=== PATIENT | male | born 1960 | race Caucasian/White ===

== ENCOUNTER → 2017-10-11 | Outpatient (CLI) | payer BC ==
[~2017-10-11] MED LIST: IOHEXOL 180 MG/ML 10 ML VIAL.; methylPREDNISolone ACETATE 40 MG/ML VIAL.; methylPREDNISolone ACETATE 80 MG/ML VIAL.
== END | disposition home or self-care (01) ==
LOC: PNCL 10:41
DX: M54.6 Pain in thoracic spine (principal); M48.54XA Collapsed vertebra, not elsewhere classified, thoracic region, initial encounter for fracture; I10 Essential (primary) hypertension; M19.90 Unspecified osteoarthritis, unspecified site; J44.9 Chronic obstructive pulmonary disease, unspecified; Z79.899 Other long term (current) drug therapy; Z98.890 Other specified postprocedural states; Z88.0 Allergy status to penicillin; Z83.3 Family history of diabetes mellitus; F17.210 Nicotine dependence, cigarettes, uncomplicated; H91.90 Unspecified hearing loss, unspecified ear; Z72.89 Other problems related to lifestyle
CPT/HCPCS: 62321; J1030; J1040; Q9965

== ENCOUNTER → 2017-10-25 | Outpatient (CLI) | payer BC | END | disposition home or self-care (01) | LOC: PNCL 10:04 | DX: M48.54XA Collapsed vertebra, not elsewhere classified, thoracic region, initial encounter for fracture (principal); M54.6 Pain in thoracic spine; Z88.0 Allergy status to penicillin | CPT/HCPCS: 62321; J1030; J1040; Q9965 ==

== ENCOUNTER 2019-04-11 18:16 | Emergency (ER) | payer OTHER ==
[~2019-04-11] VITALS: Ht 185.4 cm; Wt 88.5 kg
[~2019-04-11 18:16] MED LIST changes: +GLYC10.7 IH; +HYDR-2869 PO; -IOHEXOL 180 MG/ML 10 ML VIAL.; +VARE0.5T PO; -methylPREDNISolone ACETATE 40 MG/ML VIAL.; -methylPREDNISolone ACETATE 80 MG/ML VIAL.
[2019-04-11 19:51] VITALS: BP 139/84
[2019-04-11] MEDS ORDERED: MUPI22OI2 TP (20:35)
--- NOTE | 2019-04-11 20:36 | PHYS DOC ---
Past Medical History Past Medical History: COPD, High Cholesterol, Hypertension Past Surgical History: No Surgical History Additional Information: 1 PK/DAY Alcohol Use: Occasionally Drug Use: None Adult General Chief Complaint Chief Complaint: LACERATION/AVULSION HPI HPI Patient is a 58 year old male who presents to the ER with complaints of a wound dehiscence of the 5th finger of his left hand today. PT states he had sutures removed yesterday after having a laceration repair 2 weeks ago. At some point today the wound opened back up while he was at work. PT denies any pain at this time. He denies any bleeding or drainage from the site. Review of Systems Review of Systems Constitutional: Denies fever or chills [] Musculoskeletal: Denies joint pain [] Integument: Denies rash or erythema, see HPI Neurologic: Denies headache, focal weakness or sensory changes [] Complete systems were reviewed and found to be within normal limits, except as documented in this note. Current Medications Current Medications Current Medications Medications (Trade) Dose Ordered Sig/Frank Start Time Stop Time Status Last Admin Dose Admin Neomycin/ Polymyxin/ Bacitracin (Triple Antibiotic Ointment) 1 pkt 1X ONCE 04/11/19 21:00 04/11/19 20:57 DC 04/11/19 20:51 1 PKT Allergies Allergies Allergies Coded Allergies Type Severity Reaction Last Updated Verified Penicillins Allergy Intermediate 10/11/17 Yes Physical Exam Physical Exam Constitutional: Well developed, well nourished, no acute distress, non-toxic appearance. [] HENT: Normocephalic, atraumatic, bilateral external ears normal, nose normal. [] Eyes: PERRLA, EOMI, conjunctiva normal, no discharge. [] Neck: Normal range of motion, no stridor. [] Lungs & Thorax: Respirations even and unlabored, no retractions, no respiratory distress Abdomen: Bowel sounds normal, soft, no tenderness, no masses, no pulsatile masses. [] Skin: Warm, dry, no erythema; wound dehiscence of lateral distal fifth digit, no erythema, warmth, or drainage. Extremities: No tenderness, no cyanosis, no clubbing, ROM intact, no edema. [] Neurologic: Alert and oriented X 3, normal motor function, normal sensory function, no focal deficits noted. [] Psychologic: Affect normal, judgement normal, mood normal. [] Current Patient Data Vital Signs Vital Signs Date Time Temp Pulse Resp B/P (MAP) Pulse Ox O2 Delivery O2 Flow Rate FiO2 04/11/19 19:51 97.5 84 18 139/84 (102) 96 Room Air 97.5 EKG EKG [] Radiology/Procedures Radiology/Procedures [] Course & Med Decision Making Course & Med Decision Making Pertinent Labs and Imaging studies reviewed. (See chart for details) [] Dragon Disclaimer Dragon Disclaimer This electronic medical record was generated, in whole or in part, using a voice recognition dictation system. Departure Departure Impression: Primary Impression: Dehiscence of wound of skin Disposition: HOME, SELF-CARE Condition: STABLE Referrals: TONI BURK MD (PCP) Patient Instructions: Wound Dehiscence, [id number] Additional Instructions: Fill prescription and use as directed. Keep the area clean and dry. Change bandage twice daily and as needed. Tylenol or ibuprofen as needed for pain. Follow up with your primary care doctor in 1-2 days for wound recheck. Return to the ER if symptoms worsen. Scripts Mupirocin (MUPIROCIN OINTMENT) 22 Gm Oint...g. 1 NAHOMY TP BID for WOUND CARE for 7 Days, #1 TUBE 0 Refills Prov: JULIÁN MCKINNEY TUBE BALANCER 04/11/19 Problem Qualifiers Primary Impression: Dehiscence of wound of skin Encounter type: initial encounter Qualified Codes: T81.30XA - Disruption of wound, unspecified, initial encounter JULIÁN MCKINNEY TUBE BALANCER Apr 11, 2019 20:35
[2019-04-11] MEDS ORDERED: NEOMY/BACITR/POLYMYXIN OINT PACKET. TP ONE (21:00)
== END 2019-04-11 20:53 | disposition home or self-care (01) ==
LOC: ER 18:16
DX: T81.30XA Disruption of wound, unspecified, initial encounter (principal); J44.9 Chronic obstructive pulmonary disease, unspecified; E78.00 Pure hypercholesterolemia, unspecified; I10 Essential (primary) hypertension; F17.200 Nicotine dependence, unspecified, uncomplicated; Z88.0 Allergy status to penicillin
CPT/HCPCS: 99283

== ENCOUNTER 2020-02-02 12:14 | Inpatient (IN) | payer OTHER ==
[~2020-02-02] VITALS: Ht 188 cm; Wt 87.2 kg
[2020-02-02] VITALS (13 sets, daily range): BP systolic 98–141; BP diastolic 55–84
[~2020-02-02 12:14] MED LIST changes: +MUPI22OI2 TP
--- NOTE | 2020-02-02 13:59 | PDOC1 ---
History and Physical Date of Admission Date of Admission DATE: 02/02/20 TIME: 13:58 Identification/Chief Complaint Chief Complaint Hemoptysis Source Source: Patient History of Present Illness History of Present Illness Mr Laureano is a 59 year old male with PMHx smoker, bronchitis who presents via private vehicle to [place] ED with blood-tinged sputum. Patient was seen at [facility] ED on 01/31/2020 for fever, aches, productive sputum and was placed on doxycycline, inhalers, steroids. He comes in today stating that he now has bloody sputum which is why he came back. He does have some mild shortness of breath. He has been taking his medications as prescribed. He denies any pain. He does not currently have fevers. He had a negative coronavirus test on 01/31/2020. He does not have neo hemoptysis and in fact did cough up thick yellow sputum however it was not blood-tinged. CTPA was ordered which shows a concerning mass with lymphadenopathy, but negative for PE. Labs with WBC 20.9, Hb 14.5, platelets 322, D dimer 1.94. Troponin 0, albumin 3.3. Na 140, K 3.5, BUN 22, Cr 0.9, Glucose 119 He does relate to me he has some pain in his left side, but it has resolved. Still a bit short of breath. He notes he does have history of pulmonary embolism that was small 5 years ago and another one 30 years ago but has since been off anticoagulation. He also notes that he had a CT lung cancer screening 6 weeks ago at [facility] centers and was told it was "fine". He is concerned as he has a strong family history of cancer with colon cancer in brother, lung cancer in father and various other cancers as well in the family. He is up to date on his colonoscopy, which he had recently. Due to pneumonia not responsive to outpatient treatment and need for pulmonology and IR consultation for biopsy was transferred to [place]. Past Medical History Cardiovascular: No pertinent hx, HTN Pulmonary: No pertinent hx, COPD Musculoskeletal: low back pain Past Surgical History Past Surgical History: Other, No pertinent history Family History Family History: Cancer (Breast, colon, lung), Diabetes, Heart Disease Social History Smoke: 1 pack per day ALCOHOL: none Drugs: None Current Medications Current Medications Active Scripts Active Mupirocin Ointment (Mupirocin) 22 Gm Oint...g. 1 Ashley TP BID 7 Days Reported Bevespi Aerosphere Inhaler (Glycopyrrolate/Formoterol Fum) 10.7 Gm Hfa.aer.ad 10.7 Gm IH BID Hydralazine Hcl 50 Mg Tablet 1 Tab PO TID Chantix (Varenicline Tartrate) 0.5 Mg Tablet 0.5 Mg PO DIRECTED 0.5 MG PO DAILY X3 DAY, 0.5 MG PO BID X4 DAY, 1 MG PO BID UNTIL END OF TREATMENT Allergies Allergies: Coded Allergies: Penicillins (Verified Allergy, Intermediate, 02/02/20) Has tolerated ceftriaxone ROS General: YES: Chills, Fatigue, Malaise; No: Night Sweats, Appetite, Other PSYCHOLOGICAL ROS: No: Anxiety, Behavioral Disorder, Concentration difficultie, Decreased libido, Depression, Disorientation, Hallucinations, Hostility, Irritablity, Memory difficulties, Mood Swings, Obsessive thoughts, Physical abuse, Sexual abuse, Sleep disturbances, Suicidal ideation, Other Eyes: No Blurry vision, No Decreased vision, No Double vision, No Dry eyes, No Excessive tearing, No Eye Pain, No Itchy Eyes, No Loss of vision, No Photophobia, No Scotomata, No Uses contacts, No Uses glasses, No Other HEENT: No: Heacaches, Visual Changes, Hearing change, Nasal congestion, Nasal discharge, Oral lesions, Sinus pain, Sore Throat, Epistaxis, Sneezing, Snoring, Tinnitus, Vertigo, Vocal changes, Other ALLERGY AND IMMUNOLOGY: No: Hives, Insect Bite Sensitivity, Itchy/Watery Eyes, Nasal Congestion, Post Nasal Drip, Seasonal Allergies, Other Hematological and Lymphatic: No: Bleeding Problems, Blood Clots, Blood Transfusions, Brusing, Night Sweats, Pallor, Swollen Lymph Nodes, Other ENDOCRINE: No: Breast Changes, Galactorrhea, Hair Pattern Changes, Hot Flashes, Malaise/lethargy, Mood Swings, Palpitations, Polydipsia/polyuria, Skin Changes, Temperature Intolerance, Unexpected Weight Changes, Other Breast: No New/Changing Breast Lumps, No Nipple changes, No Nipple discharge, No Other Respiratory: YES: Cough, Hemoptysis, Pleuritic Pain, Shortness of breath, SOB with excertion, Sputum Changes, Tachypnea, Wheezing; No: Orthopnea, Stridor, Other Cardiovascular: No Chest Pain, No Palpitations, No Orthopnea, No Paroxysmal Noc. Dyspnea, No Edema, No Lt Headedness, No Other Gastrointestinal: No Nausea, No Vomiting, No Abdominal Pain, No Diarrhea, No Constipation, No Melena, No Hematochezia, No Other Genitourinary: No Dysuria, No Frequency, No Incontinence, No Hematuria, No Retention, No Discharge, No Urgency, No Pain, No Flank Pain, No Other, No , No , No , No , No , No , No Musculoskeletal: No Gait Disturbance, No Joint Pain, No Joint Stiffness, No Joint Swelling, No Muscle Pain, No Muscular Weakness, No Pain In:, No Swelling In:, No Other Neurological: No Behavorial Changes, No Bowel/Bladder ControlChng, No C onfusion, No Dizziness, No Gait Disturbance, No Headaches, No Impaired Coord/balance, No Memory Loss, No Numbness/Tingling, No Seizures, No Speech Problems, No Tremors, No Visual Changes, No Weakness, No Other Skin: No Dry Skin, No Eczema, No Hair Changes, No Lumps, No Mole Changes, No Mottling, No Nail Changes, No Pruritus, No Rash, No Skin Lesion Changes, No Other, No Acne Physical Exam General: Alert, Oriented X3, Cooperative, mild distress HEENT: Atraumatic, PERRLA, EOMI, Mucous membr. moist/pink Lungs: Other (Left basilar rhonchi, scattered wheezes) Heart: S1S2, RRR, no thrills, no rubs, no gallops, no murmurs Abdomen: Normal bowel sounds, Soft, No tenderness, No hepatosplenomegaly, No masses Male Genitals Exam: normal genitalia, normal prostate Rectal Exam: not examined Extremities: No clubbing, No cyanosis, No edema, Normal pulses, No tenderness/swelling Skin: No rashes, No breakdown, No significant lesion Neuro: Normal gait, Normal speech, Strength at 5/5 X4 ext, Normal tone, Sensation intact, Cranial nerves 3-12 NL, Reflexes 2+ Psych/Mental Status: Mental status NL, Mood NL Vitals Vitals Vital Signs Date Time Temp Pulse Resp B/P (MAP) Pulse Ox O2 Delivery O2 Flow Rate FiO2 02/02/20 13:37 97.6 66 18 141/82 (101) 99 Room Air 97.6 Images Images Lungs and Airways: Spiculated left lower infrahilar mass measures 4.0 x 3.7 x 5.0 cm (TV by AP by CC). Mass predominantly involves the lower lobe, however there is abutment and crossing of the oblique fissure. Paraseptal and centrilobular emphysema. Scattered endobronchial mucous plugging. Few small pulmonary nodules which are stable, for example left lower lobe left lower lobe 5 mm nodule (image 95) and middle lobe 6 mm nodule (image 89). Pleura: The pleural spaces are normal. Heart and Mediastinum: The visualized thyroid is normal in size and attenuation. Left hilar lymphadenopathy, for example enlarged left hilar lymph node measures 1.1 cm short axis (series 5 image 80). Enlarged left lower paratracheal lymph node measures 1.2 cm short axis (series 5 image 59). There are a few conspicuous but not pathologically enlarged by CT criteria right mediastinal lymph nodes. The heart and pericardium are within normal limits. The great vessels of the thorax are normal. Abdomen: Limited images through the upper abdomen show no abnormality of the visualized organs. Bones and Soft Tissues: Degenerative changes of the spine. Old left rib fractures. T6 vertebral plana, progressed from exam of 06/11/2017 with increased focal kyphosis. Mild chronic height loss at several additional levels is unchanged. No aggressive lytic or blastic osseous lesions. IMPRESSION: 1. No evidence of pulmonary thrombolic disease. 2. Spiculated left infrahilar mass measuring up to 5 cm concerning for primary lung neoplasm. This would likely be amenable to PET/CT based on size. 3. Left hilar and ipsilateral mediastinal lymphadenopathy concerning for metastatic disease. Few conspicuous but not pathologically enlarged by CT criteria contralateral mediastinal lymph nodes. 4. T6 compression deformity with progression of height loss since 06/11/2017 and increased focal kyphosis. VTE Prophylaxis Ordered VTE Prophylaxis Devices: No VTE Pharmacological Prophylaxi: Yes Assessment/Plan Assessment/Plan A/P: Pneumonia - left lower lobe, likely gram negative or gram positive given post- obstructive location, will cover with rocephin and doxycycline Lung mass - I have consented patient for IR lung biopsy and ordered his imaging from diagnostic imaging center. If it truly appeared this quickly over 6 weeks is likely a very aggressive malignancy Blood tinged sputum - likely bronchitis from coughing. No need to hold lovenox Leukocytosis - sepsis from pneumonia, given IVF and antibiotics prior to transport to [facility], could also be 2/2 steroid administration H/o PE - will cover with lovenox Elevated blood pressure without dx of HTN - previously prescribed lisinopril and hydralazine, but currently does not take anti-hypertensives Smoker - counseled on cessation. He is not interested in nicotine patch currently FEN - General diet PPX - lovenox FULL CODE Dispo - inpatient for pneumonia failing outpatient therapy and new lung mass, likely 2 midnights. Justicifation of Admission Dx: Justifications for Admission: Justification of Admission Dx: Yes Acute COPD Exacerbation: Acute COPD Exacerbation Comments: Pneumonia failing outpatient antibiotic therapy BARBARA LUU MD Feb 02, 2020 13:59
[2020-02-02] MEDS ORDERED: ONDANSETRON PF 4 MG/2 ML VIAL. IV PRN (14:00)
[2020-02-02] MEDS ORDERED: ACETAMINOPHEN 325 MG TABLET. PO PRN (14:00)
[2020-02-02] MEDS ORDERED: DOCUSATE SODIUM 100 MG CAPSULE. PO PRN (14:00)
[2020-02-02] MEDS ORDERED: ZOLPIDEM 5 MG TABLET. PO PRN (14:00)
[2020-02-02] MEDS ORDERED: MAGNESIUM CITRATE 296 ML SOLUTION. PO PRN (14:45)
[2020-02-02] MEDS ORDERED: traMADol 50 MG TABLET PO PRN (14:45)
[2020-02-02 14:57] LABS: PROTHROMBIN TIME PATIENT 13.3 SEC (11.7-14.0)
[2020-02-02] MEDS ORDERED: MIDAZOLAM HCL/PF 2 MG/2 ML VIAL. ONE (15:07)
[2020-02-02] MEDS ORDERED: LIDOCAINE WITH 8.4% SOD BICARB 3 ML DISP.SYRIN. ONE (15:07)
[2020-02-02] MEDS ORDERED: fentaNYL PF VIAL 100 MCG/2 ML VIAL ONE (15:07)
[2020-02-02] MEDS ORDERED: LIDOCAINE WITH 8.4% SOD BICARB 3 ML DISP.SYRIN. IJ ONE (15:45)
[2020-02-02] MEDS ORDERED: MIDAZOLAM HCL/PF 2 MG/2 ML VIAL. IV ONE (15:45)
[2020-02-02] MEDS ORDERED: fentaNYL PF VIAL 100 MCG/2 ML VIAL IV ONE (15:45)
[2020-02-02] MEDS: IPRATRPIUM/ALBUTEROL 0.5/2.5MG 3 ML NEBU. NEB SCH ×2 (16:06→20:04)
--- NOTE | 2020-02-02 16:10 | RAD ---
Procedure: CT-guided left lung biopsy Clinical Indication: Adult male with left lung mass, spiculated, concerning for neoplasm. Sedation: Conscious sedation was administered with a total intraprocedural [id number] time of 20 minutes. The patient was monitored by a qualified independent observer throughout the time of sedation. Please refer to the medical record for exact doses of medications utilized to achieve moderate sedation. Antibiotics: None Sterility: The procedure was performed in its entirety using appropriate elements of sterile technique. Consent: The procedure was explained in its entirety to the patient or the patients designated metals sales representative by a member of the treatment team, including a discussion of the risks, benefits and commonly accepted alternatives to the procedure, as well as the expected consequences of no therapy whatsoever. Discussion of the risks included, but was not limited to, those that are most frequent and those that are rare but possibly severe or life-threatening, as well as the possibility of unforeseen complications. Technique and Findings: Following informed consent, the patient was prepped and draped in usual sterile fashion. Preliminary CT scan of the area of interest was performed. 1% lidocaine was used to achieve local anesthesia over the area of interest. A small dermatotomy was made. Under periodic CT surveillance, a 19-gauge needle guide was advanced towards the target lesion and 5 separate 20-gauge core biopsy specimens were obtained and preserved in formalin. A blood patch was applied as the needle guide was removed and hemostasis was achieved with manual compression. Completion CT scan demonstrated no significant pneumothorax. Complications: No immediate Impression: 1. CT-guided left lung biopsy as described. PQRS Compliance Statement: One or more of the following individualized dose reduction techniques were utilized for this examination: 1. Automated exposure control 2. Adjustment of the mA and/or kV according to patient size 3. Use of iterative reconstruction technique
[2020-02-02] MEDS: ENOXAPARIN 40 MG/0.4 ML SYRINGE. SQ SCH (17:43)
[2020-02-02] MEDS: cefTRIAXone IV Push 1 GM VIAL. IVP SCH (17:43)
[2020-02-02] MEDS: BUDESONIDE 0.5 MG/2 ML NEBU. NEB SCH (20:03)
--- NOTE | 2020-02-02 20:11 | RAD ---
Exam: Chest one view INDICATION: Status post left lung biopsy TECHNIQUE: Frontal view of the chest Comparisons: None FINDINGS: The cardiomediastinal silhouette and pulmonary vessels are within normal limits. There is a tiny right apical pneumothorax. No pleural effusion. IMPRESSION: Tiny right apical pneumothorax FOR INTERNAL CODING PURPOSES Critical result: Findings discussed with Brynn Blackman RN at 02/02/2020 8:04 PM. RESULT CODE: (C) Electronically signed by: Chauncey Lawson MD (02/02/2020 8:07 PM) [id number]
[2020-02-02] MEDS: DOXYCYCLINE HYCLATE 100 MG in IV DEXTROSE 5% 100ML 100 ML IV SCH (21:01)
[2020-02-02] MEDS: PSYLLIUM HUSK (SUGAR FREE) 1 PKT PACKET PO SCH (21:01)
--- NOTE | 2020-02-02 22:55 | NUR ---
NURSING NOTE Critical Radiology result called to this RN from the Radiologist, reported pt had a small left apical pneumothorax on the post lung biopsy chest xray. Pt is A/O, having no difficulty breathing, lung sounds clear, diminished LLL posteriorly, pulse ox at 96% on Room Air. Dr. Colin paged at 2013, and after multiple attempts to repage, the answering service patched through to Dr. De Luna. Results reported to Dr. De Luna at [id number], order for continuos pulse ox through tonight received. Will monitor.
[2020-02-03] MEDS: guaiFENesin DM 200MG/20MG 10 ML SYRUP PO PRN ×3 (02:04→17:53)
[2020-02-03 07:00] VITALS: BP 108/73
[2020-02-03] MEDS: IPRATRPIUM/ALBUTEROL 0.5/2.5MG 3 ML NEBU. NEB SCH ×4 (08:00→20:47)
[2020-02-03] MEDS: BUDESONIDE 0.5 MG/2 ML NEBU. NEB SCH ×3 (08:00→20:47)
--- NOTE | 2020-02-03 08:33 | CONS ---
DATE OF CONSULTATION: 02/03/2020 REASON FOR CONSULTATION: I was asked to see this 59-year-old gentleman for abnormal CT of the chest, hemoptysis. HISTORY OF PRESENT ILLNESS: He does have history of [id number] smoking, continues to smoke 1 pack per day. Two days ago, he had increased cough with pink sputum production, yesterday it was worse. He went to [facility] then was transferred to [facility] for further evaluation. He had a CT done, which did show mass and he underwent a CT-guided biopsy yesterday. Pathology is pending. He has more cough with pinkish sputum production. He has occasional wheezing. He has chronic shortness of breath, which is not worse. He denies fever or chills. PAST MEDICAL HISTORY: COPD, he is on albuterol and Symbicort; hypertension. ALLERGIES: PENICILLINS. MEDICATIONS: Currently, he is on doxycycline, Pulmicort, DuoNeb, Rocephin, Lovenox 40 mg subcutaneous daily. SOCIAL HISTORY: History of [id number] smoking. Continues to smoke about 1 pack per day. FAMILY HISTORY: His father had mesothelioma. REVIEW OF SYSTEMS: As mentioned as above, other systems otherwise negative. PHYSICAL EXAMINATION: GENERAL: He is not in distress. VITAL SIGNS: His O2 saturation on room air is 98, respiratory rate 20, heart rate 63, blood pressure 98/55, temperature 97.9. HEENT: Normocephalic, atraumatic. Pupils equal, round, reactive to light. Throat is clear. Nose is clear. NECK: There is no JVD, lymphadenopathy or thyromegaly. CARDIOVASCULAR: Regular rate and rhythm. PMI is nondisplaced. CHEST: Inspection is normal. LUNGS: Few end-expiratory wheezing with forced exhalation. Percussion is within normal limit. ABDOMEN: Soft. Bowel sounds are good. There is no mass. EXTREMITIES: There is no edema. LYMPHATICS: There is no lymphadenopathy. NEUROLOGIC: Alert and oriented. SKIN: Chronic changes. LABORATORY DATA: I reviewed the following lab data: CT of the chest, which was done in [facility] is not available for me, but reportedly showed a mass with lymphadenopathy. No pulmonary embolism. Chest x-ray showed bilateral hyperinflation, small left apical pneumothorax. INR 1.1. IMPRESSION: 1. Cough. The patient reports pink sputum, not hemoptysis. I suspect it is secondary to acute bronchitis versus pneumonia. 2. Abnormal CT of the chest, reportedly he has a left lung mass with mediastinal lymphadenopathy. 3. Chronic obstructive pulmonary disease with mild acute exacerbation. 4. Acute bronchitis versus pneumonia. 5. Tobacco habituation. 6. Hypertension. PLAN AND RECOMMENDATIONS: 1. Titrate FiO2 to keep O2 saturation 92%. 2. Continue bronchodilator. 3. Continue inhaled corticosteroid. 4. Continue antibiotic. 5. Follow up pathology. 6. I had a long discussion with him regarding the smoking cessation. I have advised him to stop smoking forever. 7. Lovenox for DVT prophylaxis. 8. The findings and recommendations were discussed with the patient in detail. He understood and agreed to proceed with the plan. Thank you very much for allowing me to participate in care of this very nice gentleman. PENG LEE M.D. : LEONORA/billy JOB#: [id number] / [id number]
[2020-02-03] MEDS: DOXYCYCLINE HYCLATE 100 MG in IV DEXTROSE 5% 100ML 100 ML IV SCH ×2 (10:17→21:15)
[2020-02-03 11:00] VITALS: BP 110/78
--- NOTE | 2020-02-03 11:55 | PDOC ---
PROGRESS NOTES Date of Service: DATE: 02/03/20 TIME: 11:55 Chief Complaint Chief Complaint Assessment/Plan Assessment/Plan A/P: Pneumonia - left lower lobe, likely gram negative or gram positive given post- obstructive location, will cover with rocephin and doxycycline Lung mass - I have consented patient for IR lung biopsy and ordered his imaging from diagnostic imaging center. If it truly appeared this quickly over 6 weeks is likely a very aggressive malignancy Blood tinged sputum - likely bronchitis from coughing. No need to hold lovenox Leukocytosis - sepsis from pneumonia, given IVF and antibiotics prior to transport to [facility], could also be 2/2 steroid administration H/o PE - will cover with lovenox Elevated blood pressure without dx of HTN - previously prescribed lisinopril and hydralazine, but currently does not take anti-hypertensives Smoker - counseled on cessation. He is not interested in nicotine patch Abnormal CT of the chest, reportedly he has a left lung mass with mediastinal lymphadenopathy. Chronic obstructive pulmonary disease with mild acute exacerbation. Acute bronchitis versus pneumonia. FEN - General diet PPX - lovenox FULL CODE Dispo - inpatient for pneumonia failing outpatient therapy and new lung mass, likely 2 midnights. 40 min pt exam, chart review, > 50% of time spent with exam, chart review, pt care coordination History of Present Illness History of Present Illness History of Present Illness History of Present Illness Mr Laureano is a 59 year old male with PMHx smoker, bronchitis who presents via private vehicle to [facility] ED with blood-tinged sputum. Patient was seen at [facility] ED on 01/31/2020 for fever, aches, productive sputum and was placed on doxycycline, inhalers, steroids. He comes in today stating that he now has bloody sputum which is why he came back. He does have some mild shortness of breath. He has been taking his medications as prescribed. He denies any pain. He does not currently have fevers. He had a negative coronavirus test on 01/31/2020. He does not have neo hemoptysis and in fact did cough up thick yellow sputum however it was not blood-tinged. CTPA was ordered which shows a concerning mass with lymphadenopathy, but negative for PE. Labs with WBC 20.9, Hb 14.5, platelets 322, D dimer 1.94. Troponin 0, albumin 3.3. Na 140, K 3.5, BUN 22, Cr 0.9, Glucose 119 He does relate to me he has some pain in his left side, but it has resolved. Still a bit short of breath. He notes he does have history of pulmonary embolism that was small 5 years ago and another one 30 years ago but has since been off anticoagulation. He also notes that he had a CT lung cancer screening 6 weeks ago at diagnostic imaging centers and was told it was "fine". He is concerned as he has a strong family history of cancer with colon cancer in brother, lung cancer in father and various other cancers as well in the family. He is up to date on his colonoscopy, which he had recently. Due to pneumonia not responsive to outpatient treatment and need for pulmonology and IR consultation for biopsy was transferred to [place]. Past Medical History Cardiovascular: No pertinent hx, HTN Pulmonary: No pertinent hx, COPD Musculoskeletal: low back pain Past Surgical History Past Surgical History: Other, No pertinent history Family History Family History: Cancer (Breast, colon, lung), Diabetes, Heart Disease Social History Smoke: 1 pack per day ALCOHOL: none Drugs: None Vitals Vitals Vital Signs Date Time Temp Pulse Resp B/P (MAP) Pulse Ox O2 Delivery O2 Flow Rate FiO2 02/03/20 11:30 98 Room Air 02/03/20 11:00 97.9 60 16 110/78 (89) 97.9 02/02/20 20:06 2.0 Physical Exam General: Alert, Oriented X3, Cooperative, mild distress Abdomen: Normal bowel sounds, Soft, No tenderness, No hepatosplenomegaly, No masses Extremities: No clubbing, No cyanosis, No edema, Normal pulses, No tenderness/swelling Skin: No rashes, No breakdown, No significant lesion Labs LABS Exam: Chest one view INDICATION: Status post left lung biopsy TECHNIQUE: Frontal view of the chest Comparisons: None FINDINGS: The cardiomediastinal silhouette and pulmonary vessels are within normal limits. There is a tiny right apical pneumothorax. No pleural effusion. IMPRESSION: Tiny right apical pneumothorax FOR INTERNAL CODING PURPOSES Critical result: Findings discussed with Brynn Blackman RN at 02/02/2020 8:04 PM. RESULT CODE: (C) Electronically signed by: Chauncey Gregg MD (02/02/2020 8:07 PM) [id number] DICTATED and SIGNED BY: CHAUNCEY GREGG MD DATE: 02/02/202006 Laboratory Tests Test 02/02/20 14:30 Prothrombin Time 13.3 SEC (11.7-14.0) Prothromb Time International Ratio 1.1 (0.8-1.1) Comment Review of Relevant I have reviewed the following items mayito (where applicable) has been applied. Labs Laboratory Tests Test 02/02/20 14:30 Prothrombin Time 13.3 SEC (11.7-14.0) Prothromb Time International Ratio 1.1 (0.8-1.1) Laboratory Tests Test 02/02/20 14:30 Prothrombin Time 13.3 SEC (11.7-14.0) Prothromb Time International Ratio 1.1 (0.8-1.1) Medications Current Medications Ondansetron HCl (Zofran) 4 mg PRN Q4HRS PRN IV NAUSEA/VOMITING; Start 02/02/20 at 14:00 Zolpidem Tartrate (Ambien) 5 mg PRN QHS PRN PO INSOMNIA; Start 02/02/20 at 14:00 Acetaminophen (Tylenol) 650 mg PRN Q4HRS PRN PO TEMP OVER 100.4F OR MILD PAIN; Start 02/02/20 at 14:00 Docusate Sodium (Colace) 100 mg PRN BID PRN PO HARD STOOLS; Start 02/02/20 at 14:00 Guaifenesin (Robitussin) 200 mg PRN Q4HRS PRN PO COUGH, 1st CHOICE; Start 02/02/20 at 14:00 Enoxaparin Sodium (Lovenox 40mg Syringe) 40 mg Q24H SQ Last administered on 02/02/20at 17:43; Start 02/02/20 at 15:00 Ceftriaxone Sodium (Rocephin) 1 gm Q24H IVP Last administered on 02/02/20at 17:43; Start 02/02/20 at 15:00 Doxycycline Hyclate 100 mg/ Dextrose 100 ml @ 50 mls/hr Q12HR IV Last administered on 02/03/20at 10:17; Start 02/02/20 at 21:00 Guaifenesin (Robitussin Dm) 10 ml PRN Q6HRS PRN PO COUGH, 2nd CHOICE Last administered on 02/03/20at 10:16; Start 02/02/20 at 14:45 Budesonide (Pulmicort) 0.5 mg RTBID NEB Last administered on 02/03/20 11:30; Start 02/02/20 at 20:00 Albuterol/ Ipratropium (Duoneb) 3 ml RTQID NEB Last administered on 02/03/20 11:30; Start 02/02/20 at 16:00 Psyllium Hydrophilic Mucilloid (Metamucil Fiber Packet) 1 pkt QPM PO Last administered on 02/02/20 21:01; Start 02/02/20 at 18:00 Magnesium Citrate (Citroma) 296 ml PRN DAILY PRN PO CONSTIPATION; Start 02/02/20 at 14:45 Tramadol HCl (Ultram) 50 mg PRN Q6HRS PRN PO PAIN; Start 02/02/20 at 14:45 Lidocaine HCl (Buffered Lidocaine 1%) 3 ml STK-MED ONCE .ROUTE ; Start 02/02/20 at 15:07; Stop 02/02/20 at 15:07; Status DC Midazolam HCl (Versed) 2 mg STK-MED ONCE .ROUTE ; Start 02/02/20 at 15:07; Stop 02/02/20 at 15:07; Status DC Fentanyl Citrate (Fentanyl 2ml Vial) 100 mcg STK-MED ONCE .ROUTE ; Start 02/02/20 at 15:07; Stop 02/02/20 at 15:08; Status DC Lidocaine HCl (Buffered Lidocaine 1%) 6 ml 1X ONCE IJ Last administered on 02/02/20at 15:46; Start 02/02/20 at 15:45; Stop 02/02/20 at 15:46; Status DC Midazolam HCl (Versed) 1 mg 1X ONCE IV Last administered on 02/02/20at 15:47; Start 02/02/20 at 15:45; Stop 02/02/20 at 15:46; Status DC Fentanyl Citrate (Fentanyl 2ml Vial) 50 mcg 1X ONCE IV Last administered on 02/02/20at 15:46; Start 02/02/20 at 15:45; Stop 02/02/20 at 15:46; Status DC Active Scripts Active Reported Bevespi Aerosphere Inhaler (Glycopyrrolate/Formoterol Fum) 10.7 Gm Hfa.aer.ad 10.7 Gm IH BID Vitals/I & O Vital Sign - Last 24 Hours 02/02/20 02/02/20 02/02/20 02/02/20 13:35 13:37 15:29 15:34 Temp 97.6 97.6 Pulse 66 56 59 Resp 18 17 15 B/P (MAP) 141/82 (101) Pulse Ox 99 100 99 O2 Delivery Room Air Room Air Nasal Cannula Nasal Cannula O2 Flow Rate 2.0 2.0 02/02/20 02/02/20 02/02/20 02/02/20 15:39 15:46 15:47 16:00 Pulse 58 59 58 Resp 11 15 16 B/P (MAP) 113/65 (81) Pulse Ox 96 98 98 99 O2 Delivery Nasal Cannula Nasal Cannula Nasal Cannula Room Air O2 Flow Rate 2.0 2.0 2.0 02/02/20 02/02/20 02/02/20 02/02/20 16:07 16:15 16:20 16:31 Temp 97.5 97.5 Pulse 61 60 59 B/P (MAP) 110/68 (82) 103/63 (76) 99/57 (71) Pulse Ox 100 100 100 98 O2 Delivery Nasal Cannula Room Air Room Air Room Air O2 Flow Rate 2.0 02/02/20 02/02/20 02/02/20 02/02/20 17:00 17:31 19:00 20:00 Temp 97.7 97.7 Pulse 58 65 72 Resp 18 B/P (MAP) 107/60 (76) 116/75 (89) 103/68 (80) Pulse Ox 98 94 96 O2 Delivery Room Air Room Air Room Air Room Air 02/02/20 02/02/20 02/02/20 02/03/20 20:05 20:06 23:00 01:00 Temp 97.9 97.9 Pulse 63 Resp 18 20 B/P (MAP) 98/55 (69) Pulse Ox 97 97 94 96 O2 Delivery Nasal Cannula Nasal Cannula Room Air Room Air O2 Flow Rate 2.0 2.0 02/03/20 02/03/20 02/03/20 02/03/20 02:00 07:00 11:00 11:30 Temp 97.6 97.9 97.6 97.9 Pulse 67 60 Resp 20 14 16 B/P (MAP) 108/73 (85) 110/78 (89) Pulse Ox 98 97 97 98 O2 Delivery Room Air Room Air Room Air Room Air Intake and Output 02/02/20 02/02/20 02/03/20 15:00 23:00 07:00 Intake Total 1010 ml 480 ml Output Total 1 ml Balance 1010 ml 479 ml Justicifation of Admission Dx: Justifications for Admission: Justification of Admission Dx: Yes Acute COPD Exacerbation: Acute COPD Exacerbation HERON CRANDALL MD Feb 03, 2020 11:55
[2020-02-03 15:00] VITALS: BP 110/73
[2020-02-03] MEDS: cefTRIAXone IV Push 1 GM VIAL. IVP SCH (15:17)
[2020-02-03] MEDS: ENOXAPARIN 40 MG/0.4 ML SYRINGE. SQ SCH (15:18)
[2020-02-03] MEDS: PSYLLIUM HUSK (SUGAR FREE) 1 PKT PACKET PO SCH (17:53)
[2020-02-03 19:00] VITALS: BP 115/69
[2020-02-03] MEDS: LACTOBACILLUS RHAMNOSUS GG 1 CAPSULE. PO SCH (21:15)
[2020-02-03 23:01] VITALS: BP 129/72
[2020-02-04 03:15] VITALS: BP 118/74
[2020-02-04 07:00] VITALS: BP 126/74
[2020-02-04] MEDS: IPRATRPIUM/ALBUTEROL 0.5/2.5MG 3 ML NEBU. NEB SCH ×4 (07:28→20:15)
[2020-02-04] MEDS: BUDESONIDE 0.5 MG/2 ML NEBU. NEB SCH ×2 (07:28→20:15)
--- NOTE | 2020-02-04 08:26 | PDOC ---
PULMONARY PROGRESS NOTES DATE: 02/04/20 TIME: 08:21 Subjective sob better, has cough, no hemoptysis Vitals Vital Signs Date Time Temp Pulse Resp B/P (MAP) Pulse Ox O2 Delivery O2 Flow Rate FiO2 02/04/20 07:30 97 Room Air 02/04/20 07:00 98.1 70 18 126/74 (91) 98.1 ROS: No Nausea, No Chest Pain General: Alert, Oriented X4 HEENT: Other (nc at perrl) Lungs: Other (dminished bs) Cardiovascular: S1, S2 Abdomen: Soft, Non-tender Neuro Exam: Alert Extremities: No Edema Skin: Warm Labs Laboratory Tests Test 02/02/20 14:30 Prothrombin Time 13.3 SEC (11.7-14.0) Prothromb Time International Ratio 1.1 (0.8-1.1) Medications Active Scripts Medications Dose Route/Sig Max Daily Dose Days Date Category Bevespi Aerosphere Inhaler (Glycopyrrolate/Formoterol Fum) 10.7 Gm Hfa.aer.ad 10.7 Gm IH BID 10/25/17 Reported Impression . IMPRESSION: 1. Cough. The patient reports pink sputum, not hemoptysis. I suspect it is secondary to acute bronchitis versus pneumonia. 2. Abnormal CT of the chest, reportedly he has a left lung mass with mediastinal lymphadenopathy. 3. Chronic obstructive pulmonary disease with mild acute exacerbation. 4. Acute bronchitis versus pneumonia. 5. Tobacco habituation. 6. Hypertension. Plan . PLAN AND RECOMMENDATIONS: 1. Titrate FiO2 to keep O2 saturation 92%. 2. Continue bronchodilator. 3. Continue inhaled corticosteroid. 4. Continue antibiotic. 5. Follow up pathology. 6. I had a long discussion with him regarding the smoking cessation. I have advised him to stop smoking forever. 7. Lovenox for DVT prophylaxis. 8. ct of chest today discussed w pt, rn PENG LEE MD Feb 04, 2020 08:26
[2020-02-04] MEDS: DOXYCYCLINE HYCLATE 100 MG in IV DEXTROSE 5% 100ML 100 ML IV SCH ×2 (09:00→21:00)
[2020-02-04] MEDS: LACTOBACILLUS RHAMNOSUS GG 1 CAPSULE. PO SCH ×2 (09:03→21:28)
[2020-02-04] MEDS: guaiFENesin DM 200MG/20MG 10 ML SYRUP PO PRN ×2 (09:03→21:28)
--- NOTE | 2020-02-04 09:27 | RAD ---
CT chest without contrast dated 02/04/2020. COMPARISON: CT biopsy dated 02/02/2020 CLINICAL INDICATION: Follow-up lung mass. TECHNIQUE: Contiguous axial imaging the chest performed. No contrast administered. One or more of the following individualized dose reduction techniques were utilized for this examination: 1. Automated exposure control 2. Adjustment of the mA and/or kV according to patient size 3. Use of iterative reconstruction technique. FINDINGS: Heart size is stable. No pericardial effusion. There is aneurysmal dilation of the ascending thoracic aorta measuring 4.2 cm transverse, unchanged. There are enlarged mediastinal and left hilar and right hilar lymph nodes, similar to prior study. Pretracheal lymph node measures up to 1.5 cm short axis. Left paratracheal lymph node measures up to 1.2 cm short axis. There are a few borderline enlarged prevascular lymph nodes. No axillary or supraclavicular lymphadenopathy. Thyroid gland is unremarkable. There is a soft tissue mass at the infrahilar region on the left with cavitation at the anterior margin. This is similar to prior study and measures up to 5 cm maximum dimension. There is some narrowing of the left lower lobe segmental airways. The lesion abuts the major fissure with probable extension across the fissure to involve the lingula/left upper lobe. There is some hazy patchy density in the medial left lower lobe, likely related to some hemorrhage from the recent biopsy. There is a small left-sided pneumothorax, similar to recent chest x-ray. Central airways are patent. There is moderate emphysema. No significant pleural effusion. Mild diffuse bronchial wall thickening. Small noncalcified pulmonary nodule in the lingula on image 46 measures 5 mm, unchanged. There is also small subpleural nodule in the lingula on image 46 that measures 3 mm laterally. Limited images of upper abdomen show a 5 mm calcific stone at the upper pole right kidney. Hyperdense material in the gallbladder suggesting sludge. Bone windows show no acute findings. There are old healed rib fractures on the left. Severe wedge compression deformity of T6, unchanged. There is also mild wedging of T5 and T9, unchanged. IMPRESSION: 1. Small left-sided pneumothorax status post left lung biopsy, not significantly changed from the recent chest x-ray. 2. There is an irregular partially cavitated soft tissue mass at the infrahilar region on the left, suspicious for primary bronchogenic malignancy. CC recent biopsy results. 3. Mediastinal and left hilar lymphadenopathy, nonspecific but unchanged. 4. Mild aneurysmal dilation of the ascending thoracic aorta. 5. Emphysema. 6. Thoracic wedge compression fractures, unchanged from prior study. Electronically signed by: Elias Merino MD (02/04/2020 9:24 AM) [id number]
[2020-02-04 10:33] VITALS: BP 132/70
--- NOTE | 2020-02-04 11:00 | PDOC ---
PROGRESS NOTES Date of Service: DATE: 02/04/20 TIME: 10:58 Chief Complaint Chief Complaint IMPRESSION Assessment/Plan A/P: Pneumonia - left lower lobe, likely gram negative or gram positive given post- obstructive location, will cover with rocephin and doxycycline Lung mass - I have consented patient for IR lung biopsy and ordered his imaging from diagnostic imaging center. If it truly appeared this quickly over 6 weeks is likely a very aggressive malignancy Small left-sided pneumothorax status post left lung biopsy, not significantly changed from the recent chest x-ray. irregular partially cavitated soft tissue mass at the infrahilar region on the left, suspicious for primary bronchogenic malignancy. CC recent biopsy results. Mediastinal and left hilar lymphadenopathy, nonspecific but unchanged. Mild aneurysmal dilation of the ascending thoracic aorta. Emphysema. Blood tinged sputum - likely bronchitis from coughing. No need to hold lovenox Leukocytosis - sepsis from pneumonia, given IVF and antibiotics prior to tra nsport to [facility], could also be 2/2 steroid administration H/o PE - will cover with lovenox Elevated blood pressure without dx of HTN - previously prescribed lisinopril and hydralazine, but currently does not take anti-hypertensives Smoker - counseled on cessation. He is not interested in nicotine patch Abnormal CT of the chest, reportedly he has a left lung mass with mediastinal lymphadenopathy. Chronic obstructive pulmonary disease with mild acute exacerbation. Acute bronchitis versus pneumonia. FEN - General diet PPX - lovenox FULL CODE Dispo - inpatient for pneumonia failing outpatient therapy and new lung mass, likely 2 midnights. 42 min pt exam, chart review, > 50% of time spent with exam, chart review, pt care coordination History of Present Illness History of Present Illness History of Present Illness History of Present Illness Mr Laureano is a 59 year old male with PMHx smoker, bronchitis who presents via private vehicle to [place] ED with blood-tinged sputum. Patient was seen at [facility] ED on 01/31/2020 for fever, aches, productive sputum and was placed on doxycycline, inhalers, steroids. He comes in today stating that he now has bloody sputum which is why he came back. He does have some mild shortness of breath. He has been taking his medications as prescribed. He denies any pain. He does not currently have fevers. He had a negative coronavirus test on 01/31/2020. He does not have neo hemoptysis and in fact did cough up thick yellow sputum however it was not blood-tinged. CTPA was ordered which shows a concerning mass with lymphadenopathy, but negativ e for PE. Labs with WBC 20.9, Hb 14.5, platelets 322, D dimer 1.94. Troponin 0, albumin 3.3. Na 140, K 3.5, BUN 22, Cr 0.9, Glucose 119 He does relate to me he has some pain in his left side, but it has resolved. Still a bit short of breath. He notes he does have history of pulmonary embolism that was small 5 years ago and another one 30 years ago but has since been off anticoagulation. He also notes that he had a CT lung cancer screening 6 weeks ago at diagnostic imaging centers and was told it was "fine". He is concerned as he has a strong family history of cancer with colon cancer in brother, lung cancer in father and various other cancers as well in the family. He is up to date on his colonoscopy, which he had recently. Due to pneumonia not responsive to outpatient treatment and need for pulmonology and IR consultation for biopsy was transferred to [place]. Past Medical History Cardiovascular: No pertinent hx, HTN Pulmonary: No pertinent hx, COPD Musculoskeletal: low back pain Past Surgical History Past Surgical History: Other, No pertinent history Family History Family History: Cancer (Breast, colon, lung), Diabetes, Heart Disease Social History Smoke: 1 pack per day ALCOHOL: none Drugs: None Vitals Vitals Vital Signs Date Time Temp Pulse Resp B/P (MAP) Pulse Ox O2 Delivery O2 Flow Rate FiO2 02/04/20 10:33 98.0 74 18 132/70 (90) 98 Room Air 98.0 Physical Exam General: Alert, Oriented X3, Cooperative, mild distress Lungs: Other (dminished bs) Abdomen: Normal bowel sounds, Soft, No tenderness, No hepatosplenomegaly, No masses Extremities: No clubbing, No cyanosis, No edema, Normal pulses, No tenderness/swelling Skin: No rashes, No breakdown, No significant lesion Labs LABS COMPARISON: CT biopsy dated 02/02/2020 CLINICAL INDICATION: Follow-up lung mass. TECHNIQUE: Contiguous axial imaging the chest performed. No contrast administered. One or more of the following individualized dose reduction techniques were utilized for this examination: 1. Automated exposure control 2. Adjustment of the mA and/or kV according to patient size 3. Use of iterative reconstruction technique. FINDINGS: Heart size is stable. No pericardial effusion. There is aneurysmal dilation of the ascending thoracic aorta measuring 4.2 cm transverse, unchanged. There are enlarged mediastinal and left hilar and right hilar lymph nodes, similar to prior study. Pretracheal lymph node measures up to 1.5 cm short axis. Left paratracheal lymph node measures up to 1.2 cm short axis. There are a few borderline enlarged prevascular lymph nodes. No axillary or supraclavicular lymphadenopathy. Thyroid gland is unremarkable. There is a soft tissue mass at the infrahilar region on the left with cavitation at the anterior margin. This is similar to prior study and measures up to 5 cm maximum dimension. There is some narrowing of the left lower lobe segmental airways. The lesion abuts the major fissure with probable extension across the fissure to involve the lingula/left upper lobe. There is some hazy patchy density in the medial left lower lobe, likely related to some hemorrhage from the recent biopsy. There is a small left-sided pneumothorax, similar to recent chest x-ray. Central airways are patent. There is moderate emphysema. No significant pleural effusion. Mild diffuse bronchial wall thickening. Small noncalcified pulmonary nodule in the lingula on image 46 measures 5 mm, unchanged. There is also small subpleural nodule in the lingula on image 46 that measures 3 mm laterally. Limited images of upper abdomen show a 5 mm calcific stone at the upper pole right kidney. Hyperdense material in the gallbladder suggesting sludge. Bone windows show no acute findings. There are old healed rib fractures on the left. Severe wedge compression deformity of T6, unchanged. There is also mild wedging of T5 and T9, unchanged. IMPRESSION: 1. Small left-sided pneumothorax status post left lung biopsy, not significantly changed from the recent chest x-ray. 2. There is an irregular partially cavitated soft tissue mass at the infrahilar region on the left, suspicious for primary bronchogenic malignancy. CC recent biopsy results. 3. Mediastinal and left hilar lymphadenopathy, nonspecific but unchanged. 4. Mild aneurysmal dilation of the ascending thoracic aorta. 5. Emphysema. 6. Thoracic wedge compression fractures, unchanged from prior study. Electronically signed by: Elias Merino MD (02/04/2020 9:24 AM) [id number] DICTATED and SIGNED BY: ELIAS MERINO MD DATE: 02/04/20923 Comment Review of Relevant I have reviewed the following items mayito (where applicable) has been applied. Labs Laboratory Tests Test 02/02/20 14:30 Prothrombin Time 13.3 SEC (11.7-14.0) Prothromb Time International Ratio 1.1 (0.8-1.1) Medications Current Medications Ondansetron HCl (Zofran) 4 mg PRN Q4HRS PRN IV NAUSEA/VOMITING; Start 02/02/20 at 14:00 Zolpidem Tartrate (Ambien) 5 mg PRN QHS PRN PO INSOMNIA; Start 02/02/20 at 14:00 Acetaminophen (Tylenol) 650 mg PRN Q4HRS PRN PO TEMP OVER 100.4F OR MILD PAIN; Start 02/02/20 at 14:00 Docusate Sodium (Colace) 100 mg PRN BID PRN PO HARD STOOLS; Start 02/02/20 at 14:00 Guaifenesin (Robitussin) 200 mg PRN Q4HRS PRN PO COUGH, 1st CHOICE; Start 02/02/20 at 14:00 Enoxaparin Sodium (Lovenox 40mg Syringe) 40 mg Q24H SQ Last administered on 02/03/20at 15:18; Start 02/02/20 at 15:00 Ceftriaxone Sodium (Rocephin) 1 gm Q24H IVP Last administered on 02/03/20at 15:17; Start 02/02/20 at 15:00 Doxycycline Hyclate 100 mg/ Dextrose 100 ml @ 50 mls/hr Q12HR IV Last administered on 02/03/20at 21:15; Start 02/02/20 at 21:00 Guaifenesin (Robitussin Dm) 10 ml PRN Q6HRS PRN PO COUGH, 2nd CHOICE Last administered on 02/04/20at 09:03; Start 02/02/20 at 14:45 Budesonide (Pulmicort) 0.5 mg RTBID NEB Last administered on 02/04/20 07:28; Start 02/02/20 at 20:00 Albuterol/ Ipratropium (Duoneb) 3 ml RTQID NEB Last administered on 02/04/20at 07:28; Start 02/02/20 at 16:00 Psyllium Hydrophilic Mucilloid (Metamucil Fiber Packet) 1 pkt QPM PO Last administered on 02/03/20at 17:53; Start 02/02/20 at 18:00 Magnesium Citrate (Citroma) 296 ml PRN DAILY PRN PO CONSTIPATION; Start 02/02/20 at 14:45 Tramadol HCl (Ultram) 50 mg PRN Q6HRS PRN PO PAIN; Start 02/02/20 at 14:45 Lidocaine HCl (Buffered Lidocaine 1%) 3 ml STK-MED ONCE .ROUTE ; Start 02/02/20 at 15:07; Stop 02/02/20 at 15:07; Status DC Midazolam HCl (Versed) 2 mg STK-MED ONCE .ROUTE ; Start 02/02/20 at 15:07; Stop 02/02/20 at 15:07; Status DC Fentanyl Citrate (Fentanyl 2ml Vial) 100 mcg STK-MED ONCE .ROUTE ; Start 02/02/20 at 15:07; Stop 02/02/20 at 15:08; Status DC Lidocaine HCl (Buffered Lidocaine 1%) 6 ml 1X ONCE IJ Last administered on at 15:46; Start 02/02/20 at 15:45; Stop 02/02/20 at 15:46; Status DC Midazolam HCl (Versed) 1 mg 1X ONCE IV Last administered on 02/02/20at 15:47; Start 02/02/20 at 15:45; Stop 02/02/20 at 15:46; Status DC Fentanyl Citrate (Fentanyl 2ml Vial) 50 mcg 1X ONCE IV Last administered on 02/02/20at 15:46; Start 02/02/20 at 15:45; Stop 02/02/20 at 15:46; Status DC Lactobacillus Rhamnosus (Culturelle) 1 cap BID PO Last administered on 02/04/20at 09:03; Start 02/03/20 at 21:00 Active Scripts Active Reported Bevespi Aerosphere Inhaler (Glycopyrrolate/Formoterol Fum) 10.7 Gm Hfa.aer.ad 10.7 Gm IH BID Vitals/I & O Vital Sign - Last 24 Hours 02/03/20 02/03/20 02/03/20 02/03/20 11:00 11:30 15:00 15:55 Temp 97.9 97.8 97.9 97.8 Pulse 60 64 Resp 16 16 B/P (MAP) 110/78 (89) 110/73 (85) Pulse Ox 97 98 95 97 O2 Delivery Room Air Room Air Room Air Room Air 02/03/20 02/03/20 02/03/20 02/03/20 19:00 20:00 20:48 20:49 Temp 97.9 97.9 Pulse 71 Resp 20 B/P (MAP) 115/69 (84) Pulse Ox 96 97 97 O2 Delivery Room Air Room Air Room Air Room Air 02/03/20 02/04/20 02/04/20 02/04/20 23:01 03:15 07:00 07:30 Temp 97.7 97.9 98.1 97.7 97.9 98.1 Pulse 66 64 70 Resp 20 20 18 B/P (MAP) 129/72 (91) 118/74 (89) 126/74 (91) Pulse Ox 99 96 98 97 O2 Delivery Room Air Room Air Room Air Room Air 02/04/20 02/04/20 08:00 10:33 Temp 98.0 98.0 Pulse 74 Resp 18 B/P (MAP) 132/70 (90) Pulse Ox 98 O2 Delivery Room Air Room Air Intake and Output 02/03/20 02/03/20 02/04/20 15:00 23:00 07:00 Intake Total 360 ml 400 ml 200 ml Balance 360 ml 400 ml 200 ml Justicifation of Admission Dx: Justifications for Admission: Justification of Admission Dx: Yes Acute COPD Exacerbation: Acute COPD Exacerbation HERON CRANDALL MD Feb 04, 2020 11:00
[2020-02-04] MEDS: ENOXAPARIN 40 MG/0.4 ML SYRINGE. SQ SCH (14:14)
[2020-02-04] MEDS: guaiFENesin ORAL 200 MG/10 ML LIQUID. PO PRN (14:14)
[2020-02-04] MEDS: cefTRIAXone IV Push 1 GM VIAL. IVP SCH (14:15)
[2020-02-04 15:00] VITALS: BP 106/76
[2020-02-04] MEDS: PSYLLIUM HUSK (SUGAR FREE) 1 PKT PACKET PO SCH (17:25)
[2020-02-04 19:00] VITALS: BP 110/73
[2020-02-04 23:01] VITALS: BP 130/83
[2020-02-05 05:16] VITALS: BP 117/81
[2020-02-05 07:00] VITALS: BP 119/78
[2020-02-05] MEDS: BUDESONIDE 0.5 MG/2 ML NEBU. NEB SCH ×2 (07:57→20:29)
[2020-02-05] MEDS: IPRATRPIUM/ALBUTEROL 0.5/2.5MG 3 ML NEBU. NEB SCH ×4 (07:57→20:29)
[2020-02-05] MEDS: DOXYCYCLINE HYCLATE 100 MG in IV DEXTROSE 5% 100ML 100 ML IV SCH ×2 (09:00→21:00)
[2020-02-05] MEDS: LACTOBACILLUS RHAMNOSUS GG 1 CAPSULE. PO SCH ×2 (09:17→21:40)
[2020-02-05] MEDS: guaiFENesin ORAL 200 MG/10 ML LIQUID. PO PRN (09:20)
--- NOTE | 2020-02-05 10:03 | PDOC ---
PROGRESS NOTES Date of Service: DATE: 02/05/20 TIME: 10:03 Chief Complaint Chief Complaint IMPRESSION Assessment/Plan A/P: Pneumonia - left lower lobe, likely gram negative or gram positive given post- obstructive location, will cover with rocephin and doxycycline Lung mass - I have consented patient for IR lung biopsy and ordered his imaging from diagnostic imaging center. If it truly appeared this quickly over 6 weeks is likely a very aggressive malignancy Small left-sided pneumothorax status post left lung biopsy, not significantly changed from the recent chest x-ray. irregular partially cavitated soft tissue mass at the infrahilar region on the left, suspicious for primary bronchogenic malignancy. CC recent biopsy results. Mediastinal and left hilar lymphadenopathy, nonspecific but unchanged. Mild aneurysmal dilation of the ascending thoracic aorta. Emphysema. Blood tinged sputum - likely bronchitis from coughing. No need to hold lovenox Leukocytosis - sepsis from pneumonia, given IVF and antibiotics prior to tr ansport to [facility], could also be 2/2 steroid administration H/o PE - will cover with lovenox Elevated blood pressure without dx of HTN - previously prescribed lisinopril and hydralazine, but currently does not take anti-hypertensives Smoker - counseled on cessation. He is not interested in nicotine patch Abnormal CT of the chest, reportedly he has a left lung mass with mediastinal ly mphadenopathy. Chronic obstructive pulmonary disease with mild acute exacerbation. Acute bronchitis versus pneumonia. FEN - General diet PPX - lovenox FULL CODE Dispo - inpatient for pneumonia failing outpatient therapy and new lung mass, likely 2 midnights. [facility] SWISH AND SWALLOW QID ONCOLOGY CONSULT 32 min pt exam, chart review, > 50% of time spent with exam, chart review, pt care coordination History of Present Illness History of Present Illness History of Present Illness History of Present Illness Mr Laureano is a 59 year old male with PMHx smoker, bronchitis who presents via private vehicle to [place] ED with blood-tinged sputum. Patient was seen at [facility] ED on 01/31/2020 for fever, aches, productive sputum and was placed on doxycycline, inhalers, steroids. He comes in today stating that he now has bloody sputum which is why he came back. He does have some mild shortness of breath. He has been taking his medications as pres cribed. He denies any pain. He does not currently have fevers. He had a negative coronavirus test on 01/31/2020. He does not have neo hemoptysis and in fact did cough up thick yellow sputum however it was not blood-tinged. CTPA was ordered which shows a concerning mass with lymphadenopathy, but negative for PE. Labs with WBC 20.9, Hb 14.5, platelets 322, D dimer 1.94. Troponin 0, albumin 3.3. Na 140, K 3.5, BUN 22, Cr 0.9, Glucose 119 He does relate to me he has some pain in his left side, but it has resolved. Still a bit short of breath. He notes he does have history of pulmonary embolism that was small 5 years ago and another one 30 years ago but has since been off anticoagulation. He also notes that he had a CT lung cancer screening 6 weeks ago at diagnostic imaging centers and was told it was "fine". He is concerned as he has a strong family history of cancer with colon cancer in brother, lung cancer in father and various other cancers as well in the family. He is up to date on his colonoscopy, which he had recently. Due to pneumonia not responsive to outpatient treatment and need for pulmonology and IR consultation for biopsy was transferred to [place]. Past Medical History Cardiovascular: No pertinent hx, HTN Pulmonary: No pertinent hx, COPD Musculoskeletal: low back pain Past Surgical History Past Surgical History: Other, No pertinent history Family History Family History: Cancer (Breast, colon, lung), Diabetes, Heart Disease Social History Smoke: 1 pack per day ALCOHOL: none Drugs: None Vitals Vitals Vital Signs Date Time Temp Pulse Resp B/P (MAP) Pulse Ox O2 Delivery O2 Flow Rate FiO2 02/05/20 07:58 98 Room Air 02/05/20 07:00 97.9 69 18 119/78 (92) 97.9 Physical Exam General: Alert, Oriented X3, Cooperative, mild distress Lungs: Other (dminished bs) Abdomen: Normal bowel sounds, Soft, No tenderness, No hepatosplenomegaly, No masses Extremities: No clubbing, No cyanosis, No edema, Normal pulses, No tenderness/swelling Skin: No rashes, No breakdown, No significant lesion Labs LABS CLINICAL INDICATION: Follow-up lung mass. TECHNIQUE: Contiguous axial imaging the chest performed. No contrast administered. One or more of the following individualized dose reduction techniques were utilized for this examination: 1. Automated exposure control 2. Adjustment of the mA and/or kV according to patient size 3. Use of iterative reconstruction technique. FINDINGS: Heart size is stable. No pericardial effusion. There is aneurysmal dilation of the ascending thoracic aorta measuring 4.2 cm transverse, unchanged. There are enlarged mediastinal and left hilar and right hilar lymph nodes, similar to prior study. Pretracheal lymph node measures up to 1.5 cm short axis. Left paratracheal lymph node measures up to 1.2 cm short axis. There are a few borderline enlarged prevascular lymph nodes. No axillary or supraclavicular lymphadenopathy. Thyroid gland is unremarkable. There is a soft tissue mass at the infrahilar region on the left with cavitation at the anterior margin. This is similar to prior study and measures up to 5 cm maximum dimension. There is some narrowing of the left lower lobe segmental airways. The lesion abuts the major fissure with probable extension across the fissure to involve the lingula/left upper lobe. There is some hazy patchy density in the medial left lower lobe, likely related to some hemorrhage from the recent biopsy. There is a small left-sided pneumothorax, similar to recent chest x-ray. Central airways are patent. There is moderate emphysema. No significant pleural effusion. Mild diffuse bronchial wall thickening. Small noncalcified pulmonary nodule in the lingula on image 46 measures 5 mm, unchanged. There is also small subpleural nodule in the lingula on image 46 that measures 3 mm laterally. Limited images of upper abdomen show a 5 mm calcific stone at the upper pole right kidney. Hyperdense material in the gallbladder suggesting sludge. Bone windows show no acute findings. There are old healed rib fractures on the left. Severe wedge compression deformity of T6, unchanged. There is also mild wedging of T5 and T9, unchanged. IMPRESSION: 1. Small left-sided pneumothorax status post left lung biopsy, not significantly changed from the recent chest x-ray. 2. There is an irregular partially cavitated soft tissue mass at the infrahilar region on the left, suspicious for primary bronchogenic malignancy. CC recent biopsy results. 3. Mediastinal and left hilar lymphadenopathy, nonspecific but unchanged. 4. Mild aneurysmal dilation of the ascending thoracic aorta. 5. Emphysema. 6. Thoracic wedge compression fractures, unchanged from prior study. Electronically signed by: Elias Merino MD (02/04/2020 9:24 AM) Comment Review of Relevant I have reviewed the following items mayito (where applicable) has been applied. Medications Current Medications Ondansetron HCl (Zofran) 4 mg PRN Q4HRS PRN IV NAUSEA/VOMITING; Start 02/02/20 at 14:00 Zolpidem Tartrate (Ambien) 5 mg PRN QHS PRN PO INSOMNIA Last administered on 02/04/20 21:29; Start 02/02/20 at 14:00 Acetaminophen (Tylenol) 650 mg PRN Q4HRS PRN PO TEMP OVER 100.4F OR MILD PAIN; Start 02/02/20 at 14:00 Docusate Sodium (Colace) 100 mg PRN BID PRN PO HARD STOOLS Last administered on 02/05/20 09:17; Start 02/02/20 at 14:00 Guaifenesin (Robitussin) 200 mg PRN Q4HRS PRN PO COUGH, 1st CHOICE Last administered on 02/05/20 09:20; Start 02/02/20 at 14:00 Enoxaparin Sodium (Lovenox 40mg Syringe) 40 mg Q24H SQ Last administered on 02/04/20 14:14; Start 02/02/20 at 15:00 Ceftriaxone Sodium (Rocephin) 1 gm Q24H IVP Last administered on 02/04/20 14:15; Start 02/02/20 at 15:00 Doxycycline Hyclate 100 mg/ Dextrose 100 ml @ 50 mls/hr Q12HR IV Last administered on 02/03/20 21:15; Start 02/02/20 at 21:00 Guaifenesin (Robitussin Dm) 10 ml PRN Q6HRS PRN PO COUGH, 2nd CHOICE Last administered on 02/04/20 21:28; Start 02/02/20 at 14:45 Budesonide (Pulmicort) 0.5 mg RTBID NEB Last administered on 02/05/20 07:57; Start 02/02/20 at 20:00 Albuterol/ Ipratropium (Duoneb) 3 ml RTQID NEB Last administered on 02/05/20 07:57; Start 02/02/20 at 16:00 Psyllium Hydrophilic Mucilloid (Metamucil Fiber Packet) 1 pkt QPM PO Last administered on 02/04/20at 17:25; Start 02/02/20 at 18:00 Magnesium Citrate (Citroma) 296 ml PRN DAILY PRN PO CONSTIPATION; Start 02/02/20 at 14:45 Tramadol HCl (Ultram) 50 mg PRN Q6HRS PRN PO PAIN; Start 02/02/20 at 14:45 Lidocaine HCl (Buffered Lidocaine 1%) 3 ml STK-MED ONCE .ROUTE ; Start 02/02/20 at 15:07; Stop 02/02/20 at 15:07; Status DC Midazolam HCl (Versed) 2 mg STK-MED ONCE .ROUTE ; Start 02/02/20 at 15:07; Stop 02/02/20 at 15:07; Status DC Fentanyl Citrate (Fentanyl 2ml Vial) 100 mcg STK-MED ONCE .ROUTE ; Start 02/02/20 at 15:07; Stop 02/02/20 at 15:08; Status DC Lidocaine HCl (Buffered Lidocaine 1%) 6 ml 1X ONCE IJ Last administered on 02/02/20at 15:46; Start 02/02/20 at 15:45; Stop 02/02/20 at 15:46; Status DC Midazolam HCl (Versed) 1 mg 1X ONCE IV Last administered on 02/02/20at 15:47; Start 02/02/20 at 15:45; Stop 02/02/20 at 15:46; Status DC Fentanyl Citrate (Fentanyl 2ml Vial) 50 mcg 1X ONCE IV Last administered on 02/02/20at 15:46; Start 02/02/20 at 15:45; Stop 02/02/20 at 15:46; Status DC Lactobacillus Rhamnosus (Culturelle) 1 cap BID PO Last administered on 02/05/20at 09:17; Start 02/03/20 at 21:00 Active Scripts Active Reported Bevespi Aerosphere Inhaler (Glycopyrrolate/Formoterol Fum) 10.7 Gm Hfa.aer.ad 10.7 Gm IH BID Vitals/I & O Vital Sign - Last 24 Hours 02/04/20 02/04/20 02/04/20 02/04/20 10:33 12:40 15:00 15:46 Temp 98.0 98.0 98.0 98.0 Pulse 74 85 Resp 18 18 B/P (MAP) 132/70 (90) 106/76 (86) Pulse Ox 98 97 96 O2 Delivery Room Air Room Air Room Air Room Air 02/04/20 02/04/20 02/04/20 02/04/20 19:00 19:30 20:17 20:17 Temp 98.1 98.1 Pulse 88 Resp 20 B/P (MAP) 110/73 (85) Pulse Ox 95 100 100 O2 Delivery Room Air Room Air Room Air Room Air 02/04/20 02/05/20 02/05/20 02/05/20 23:01 05:16 07:00 07:58 Temp 98.1 97.8 97.9 98.1 97.8 97.9 Pulse 79 79 69 Resp 18 20 18 B/P (MAP) 130/83 (99) 117/81 (93) 119/78 (92) Pulse Ox 96 96 95 98 O2 Delivery Room Air Room Air Room Air Room Air Intake and Output 02/04/20 02/04/20 02/05/20 15:00 23:00 07:00 Intake Total 600 ml 240 ml Balance 600 ml 240 ml Justicifation of Admission Dx: Justifications for Admission: Justification of Admission Dx: Yes Acute COPD Exacerbation: Acute COPD Exacerbation HERON CRANDALL MD Feb 05, 2020 10:03
[2020-02-05 11:00] VITALS: BP 98/71
--- NOTE | 2020-02-05 11:12 | NUR ---
SW following. Discussed with RN, pt from home, room air, regular diet. No PT/OT needs. Pt had biopsy - possibility of discharging and following up when resulted. Pt on 2 IV abx. SW will continue to follow.
--- NOTE | 2020-02-05 12:20 | PDOC ---
PULMONARY PROGRESS NOTES DATE: 02/05/20 TIME: 12:18 Subjective sob better, has cough, no hemoptysis Vitals Vital Signs Date Time Temp Pulse Resp B/P (MAP) Pulse Ox O2 Delivery O2 Flow Rate FiO2 02/05/20 11:06 Room Air 02/05/20 11:00 97.7 78 18 98/71 (80) 95 97.7 ROS: No Nausea, No Chest Pain General: Alert, Oriented X4 HEENT: Other (nc at perrl) Lungs: Other (dminished bs) Cardiovascular: S1, S2 Abdomen: Soft, Non-tender Neuro Exam: Alert Extremities: No Edema Skin: Warm Medications Active Scripts Medications Dose Route/Sig Max Daily Dose Days Date Category Bevespi Aerosphere Inhaler (Glycopyrrolate/Formoterol Fum) 10.7 Gm Hfa.aer.ad 10.7 Gm IH BID 10/25/17 Reported Impression . IMPRESSION: 1. Cough. The patient reports pink sputum, not hemoptysis. I suspect it is secondary to acute bronchitis versus pneumonia. 2. Abnormal CT of the chest, with a cavitary left lung mass with mediastinal lymphadenopathy. He says a ct chest done outside 6 weeks ago was negative. possible lung abscess 3. Chronic obstructive pulmonary disease with mild acute exacerbation. 4. Acute bronchitis versus pneumonia. 5. Tobacco habituation. 6. Hypertension. Plan . PLAN AND RECOMMENDATIONS: 1. Titrate FiO2 to keep O2 saturation 92%. 2. Continue bronchodilator. 3. Continue inhaled corticosteroid. 4. Continue antibiotic. 5. Follow up pathology. 6. I had a long discussion with him regarding the smoking cessation. I have advised him to stop smoking forever. 7. Lovenox for DVT prophylaxis. 8. He says a ct chest done outside 6 weeks ago was negative. possible lung abscess if bx neg. Will review old ct from [facility] 9. dc home in am discussed w pt, rn IVETH LISA MD Feb 05, 2020 12:20
[2020-02-05 12:23] LABS: BASO % 0 % (0-3); EOS # 0.2 x10^3/uL (0.0-0.7); EOS % 2 % (0-3); HEMATOCRIT 44.6 % (39.0-53.0); HEMOGLOBIN 15.2 g/dL (13.0-17.5); LYMPH # 1.9 x10^3/uL (1.0-4.8); LYMPH % 20 % (24-48); MEAN CORPUSCULAR HEMOGLOBIN 29 pg (25-35); MEAN CORPUSCULAR HGB CONC 34 g/dL (31-37); MEAN CORPUSCULAR VOLUME 86 fL (79-100); MONO # 0.8 x10^3/uL (0.0-1.1); MONO % 8 % (0-9); NEUT # 6.8 x10^3/uL (1.8-7.7); NEUT % 70 % (31-73); PLATELET COUNT 295 x10^3/uL (140-400); RED BLOOD COUNT 5.18 x10^6/uL (4.30-5.70); RED CELL DISTRIBUTION WIDTH 13.6 % (11.5-14.5); WHITE BLOOD COUNT 9.7 x10^3/uL (4.0-11.0)
[2020-02-05 12:42] LABS: ALBUMIN 3.4 g/dL (3.4-5.0); ALBUMIN/GLOBULIN RATIO 0.8 (1.0-1.7); CALCIUM 8.9 mg/dL (8.5-10.1); CREATININE 0.8 mg/dL (0.7-1.3); GFR 98.9; POTASSIUM 4.4 mmol/L (3.5-5.1); TOTAL BILIRUBIN 0.3 mg/dL (0.2-1.0); TOTAL PROTEIN 7.5 g/dL (6.4-8.2)
--- NOTE | 2020-02-05 12:47 | PDOC2 ---
CONSULT Date of Consult Date of Consult DATE: 02/05/20 TIME: 12:38 Reason for Consult Reason for Consult: Lung cancer Referring Physician Referring Physician: Dr. De Luna Identification/Chief Complaint Chief Complaint Hemoptysis Problems: (1) Lung mass Source Source: Chart review, Patient History of Present Illness Reason for Visit: Travis Laureano is a 59-year-old male with history of tobacco use (43 pack years) who initially presented with hemoptysis and was admitted to the hospital for further evaluation and management of a newly diagnosed lung mass. Patient reports that he has had increased cough for the past few weeks. He also noticed pink sputum over the last few days. He elected to come to the emergency room on 02/02/2020 due to continued hemoptysis. He received a CT chest in the emergency room which showed a 5 cm sized right perihilar mass with associated mediastinal and hilar lymphadenopathy. He received a CT-guided biopsy of the lung mass and pathology is pending at this time. Patient reports no recent appetite change or weight loss or dizziness or blurred vision or seizures or loss of consciousness or pain anywhere new. He reports that he has not smoked in 3 days. He plans on quitting tobacco use. Oncology has been consulted given high suspicion for lung cancer Patient denies history of other cancers in the past. He reports that he received a CT of the chest at [facility] 6 weeks ago and was told that this was normal. Past Medical History Cardiovascular: No pertinent hx, HTN Pulmonary: No pertinent hx, COPD Musculoskeletal: low back pain Past Surgical History Past Surgical History: Other, No pertinent history Family History Family History: Cancer (Breast, colon, lung), Diabetes, Heart Disease Social History 1 pack per day ALCOHOL: none Drugs: None Lives: Alone Current Medications Current Medications Current Medications Ondansetron HCl (Zofran) 4 mg PRN Q4HRS PRN IV NAUSEA/VOMITING; Start 02/02/20 at 14:00 Zolpidem Tartrate (Ambien) 5 mg PRN QHS PRN PO INSOMNIA Last administered on 02/04/20at 21:29; Start 02/02/20 at 14:00 Acetaminophen (Tylenol) 650 mg PRN Q4HRS PRN PO TEMP OVER 100.4F OR MILD PAIN; Start 02/02/20 at 14:00 Docusate Sodium (Colace) 100 mg PRN BID PRN PO HARD STOOLS Last administered on 02/05/20 09:17; Start 02/02/20 at 14:00 Guaifenesin (Robitussin) 200 mg PRN Q4HRS PRN PO COUGH, 1st CHOICE Last administered on 02/05/20 09:20; Start 02/02/20 at 14:00 Enoxaparin Sodium (Lovenox 40mg Syringe) 40 mg Q24H SQ Last administered on 02/04/20 14:14; Start 02/02/20 at 15:00 Ceftriaxone Sodium (Rocephin) 1 gm Q24H IVP Last administered on 02/04/20 14:15; Start 02/02/20 at 15:00 Doxycycline Hyclate 100 mg/ Dextrose 100 ml @ 50 mls/hr Q12HR IV Last administered on 02/03/20 21:15; Start 02/02/20 at 21:00 Guaifenesin (Robitussin Dm) 10 ml PRN Q6HRS PRN PO COUGH, 2nd CHOICE Last administered on 02/04/20 21:28; Start 02/02/20 at 14:45 Budesonide (Pulmicort) 0.5 mg RTBID NEB Last administered on 02/05/20 07:57; Start 02/02/20 at 20:00 Albuterol/ Ipratropium (Duoneb) 3 ml RTQID NEB Last administered on 02/05/20 11:05; Start 02/02/20 at 16:00 Psyllium Hydrophilic Mucilloid (Metamucil Fiber Packet) 1 pkt QPM PO Last administered on 02/04/20 17:25; Start 02/02/20 at 18:00 Magnesium Citrate (Citroma) 296 ml PRN DAILY PRN PO CONSTIPATION; Start 02/02/20 at 14:45 Tramadol HCl (Ultram) 50 mg PRN Q6HRS PRN PO PAIN; Start 02/02/20 at 14:45 Lidocaine HCl (Buffered Lidocaine 1%) 3 ml STK-MED ONCE .ROUTE ; Start 02/02/20 at 15:07; Stop 02/02/20 at 15:07; Status DC Midazolam HCl (Versed) 2 mg STK-MED ONCE .ROUTE ; Start 02/02/20 at 15:07; Stop 02/02/20 at 15:07; Status DC Fentanyl Citrate (Fentanyl 2ml Vial) 100 mcg STK-MED ONCE .ROUTE ; Start 02/02/20 at 15:07; Stop 02/02/20 at 15:08; Status DC Lidocaine HCl (Buffered Lidocaine 1%) 6 ml 1X ONCE IJ Last administered on 02/02/20at 15:46; Start 02/02/20 at 15:45; Stop 02/02/20 at 15:46; Status DC Midazolam HCl (Versed) 1 mg 1X ONCE IV Last administered on 02/02/20at 15:47; Start 02/02/20 at 15:45; Stop 02/02/20 at 15:46; Status DC Fentanyl Citrate (Fentanyl 2ml Vial) 50 mcg 1X ONCE IV Last administered on 02/02/20at 15:46; Start 02/02/20 at 15:45; Stop 02/02/20 at 15:46; Status DC Lactobacillus Rhamnosus (Culturelle) 1 cap BID PO Last administered on 02/05/20at 09:17; Start 02/03/20 at 21:00 Nystatin (Nystatin Oral Susp) 5 ml [id number] ; Start 02/05/20 at 13:00 Active Scripts Active Reported Bevespi Aerosphere Inhaler (Glycopyrrolate/Formoterol Fum) 10.7 Gm Hfa.aer.ad 10.7 Gm IH BID Allergies Allergies: Coded Allergies: Penicillins (Verified Allergy, Intermediate, 02/02/20) Has tolerated ceftriaxone doxycycline (Verified Allergy, Intermediate, BLISTERS ON LIPS & ROOF OF MOUTH, 02/04/20) PT REPORTED GOT SLISTERS ON LIPS AMD ROOF OF MOUTH AFTER 1ST DOSE ROS General: No: Chills, Night Sweats, Fatigue, Malaise, Appetite PSYCHOLOGICAL ROS: No: Anxiety, Behavioral Disorder Eyes: No Blurry vision, No Double vision HEENT: No: Heacaches, Visual Changes, Oral lesions ALLERGY AND IMMUNOLOGY: No: Nasal Congestion, Post Nasal Drip Hematological and Lymphatic: No: Bleeding Problems, Blood Clots, Night Sweats ENDOCRINE: No: Malaise/lethargy, Mood Swings Respiratory: YES: Cough, Hemoptysis, Shortness of breath (From COPD. Stable); No: Orthopnea, Pleuritic Pain Cardiovascular: No Chest Pain, No Palpitations Gastrointestinal: Yes Constipation; No Nausea, No Vomiting, No Abdominal Pain, No Diarrhea Genitourinary: No Dysuria, No Hematuria, No Flank Pain Musculoskeletal: No Gait Disturbance, No Joint Pain Neurological: No Behavorial Changes, No Bowel/Bladder ControlChng Skin: No Dry Skin, No Rash Physical Exam General: Alert, Oriented X3 HEENT: Atraumatic, PERRLA Lungs: Clear to auscultation, Normal air movement Heart: Regular rate, Normal S1, Normal S2, No murmurs Abdomen: Normal bowel sounds, Soft Extremities: No clubbing, No cyanosis Skin: No rashes Neuro: Normal speech Psych/Mental Status: Mental status NL MUSCULOSKELETAL: No joint tenderness, No swelling Vitals VITALS Vital Signs Date Time Temp Pulse Resp B/P (MAP) Pulse Ox O2 Delivery O2 Flow Rate FiO2 02/05/20 11:06 Room Air 02/05/20 11:00 97.7 78 18 98/71 (80) 95 97.7 Labs Labs Laboratory Tests Test 02/05/20 12:00 White Blood Count 9.7 x10^3/uL (4.0-11.0) Red Blood Count 5.18 x10^6/uL (4.30-5.70) Hemoglobin 15.2 g/dL (13.0-17.5) Hematocrit 44.6 % (39.0-53.0) Mean Corpuscular Volume 86 fL (79-100) Mean Corpuscular Hemoglobin 29 pg (25-35) Mean Corpuscular Hemoglobin Concent 34 g/dL (31-37) Red Cell Distribution Width 13.6 % (11.5-14.5) Platelet Count 295 x10^3/uL (140-400) Neutrophils (%) (Auto) 70 % (31-73) Lymphocytes (%) (Auto) 20 % (24-48) Monocytes (%) (Auto) 8 % (0-9) Eosinophils (%) (Auto) 2 % (0-3) Basophils (%) (Auto) 0 % (0-3) Neutrophils # (Auto) 6.8 x10^3/uL (1.8-7.7) Lymphocytes # (Auto) 1.9 x10^3/uL (1.0-4.8) Monocytes # (Auto) 0.8 x10^3/uL (0.0-1.1) Eosinophils # (Auto) 0.2 x10^3/uL (0.0-0.7) Basophils # (Auto) 0.0 x10^3/uL (0.0-0.2) Laboratory Tests Test 02/05/20 12:00 White Blood Count 9.7 x10^3/uL (4.0-11.0) Red Blood Count 5.18 x10^6/uL (4.30-5.70) Hemoglobin 15.2 g/dL (13.0-17.5) Hematocrit 44.6 % (39.0-53.0) Mean Corpuscular Volume 86 fL (79-100) Mean Corpuscular Hemoglobin 29 pg (25-35) Mean Corpuscular Hemoglobin Concent 34 g/dL (31-37) Red Cell Distribution Width 13.6 % (11.5-14.5) Platelet Count 295 x10^3/uL (140-400) Neutrophils (%) (Auto) 70 % (31-73) Lymphocytes (%) (Auto) 20 % (24-48) Monocytes (%) (Auto) 8 % (0-9) Eosinophils (%) (Auto) 2 % (0-3) Basophils (%) (Auto) 0 % (0-3) Neutrophils # (Auto) 6.8 x10^3/uL (1.8-7.7) Lymphocytes # (Auto) 1.9 x10^3/uL (1.0-4.8) Monocytes # (Auto) 0.8 x10^3/uL (0.0-1.1) Eosinophils # (Auto) 0.2 x10^3/uL (0.0-0.7) Basophils # (Auto) 0.0 x10^3/uL (0.0-0.2) Images Images CT chest: 1. Small left-sided pneumothorax status post left lung biopsy, not significantly changed from the recent chest x-ray. 2. There is an irregular partially cavitated soft tissue mass at the infrahilar region on the left, suspicious for primary bronchogenic malignancy. CC recent biopsy results. 3. Mediastinal and left hilar lymphadenopathy, nonspecific but unchanged. 4. Mild aneurysmal dilation of the ascending thoracic aorta. 5. Emphysema. 6. Thoracic wedge compression fractures, unchanged from prior study. Assessment/Plan Assessment/Plan Assessment: New lung mass, suspected lung cancer with associated mediastinal lymphadenopathy Hemoptysis likely from lung cancer COPD Tobacco use Recommendations: -I counseled the patient on the results of CT chest and our suspicion for lung cancer -Given recent CT chest that was apparently normal, would maintain high suspicion for small cell lung cancer. Will request records -Noted lung biopsy on 02/02/2020. Will follow-up results. -We will plan on MRI brain and PET/CT for completion of staging after histology is confirmed -Follow-up will be arranged with medical oncology and radiation oncology at the time of dismissal from the hospital Zane Post MD Medical Oncology/Hematology Ph: [phone] GINA POST MD Feb 05, 2020 12:47
[2020-02-05] MEDS: NYSTATIN 100,000 UNITS/ML 5 ML ORAL.SUSP. SWSW SCH ×3 (14:31→21:40)
[2020-02-05 15:00] VITALS: BP 115/82
[2020-02-05] MEDS: cefTRIAXone IV Push 1 GM VIAL. IVP SCH (15:00)
[2020-02-05] MEDS: ENOXAPARIN 40 MG/0.4 ML SYRINGE. SQ SCH (16:11)
[2020-02-05] MEDS: PSYLLIUM HUSK (SUGAR FREE) 1 PKT PACKET PO SCH (18:30)
[2020-02-05 19:00] VITALS: BP 119/80
[2020-02-05 23:00] VITALS: BP 123/70
[2020-02-06 03:00] VITALS: BP 114/78
[2020-02-06 07:28] VITALS: BP 111/81
[2020-02-06] MEDS: IPRATRPIUM/ALBUTEROL 0.5/2.5MG 3 ML NEBU. NEB SCH ×2 (07:51→12:00)
[2020-02-06] MEDS: BUDESONIDE 0.5 MG/2 ML NEBU. NEB SCH (07:51)
[2020-02-06] MEDS: DOXYCYCLINE HYCLATE 100 MG in IV DEXTROSE 5% 100ML 100 ML IV SCH (09:00)
[2020-02-06] MEDS: NYSTATIN 100,000 UNITS/ML 5 ML ORAL.SUSP. SWSW SCH (09:25)
[2020-02-06] MEDS: LACTOBACILLUS RHAMNOSUS GG 1 CAPSULE. PO SCH (09:25)
--- NOTE | 2020-02-06 10:30 | PDOC ---
PROGRESS NOTES Date of Service: DATE: 02/06/20 TIME: 10:30 Chief Complaint Chief Complaint DISCHARGE DX Assessment/Plan A/P: Pneumonia - left lower lobe, likely gram negative or gram positive given post- obstructive location, will cover with rocephin and doxycycline Lung mass - I have consented patient for IR lung biopsy and ordered his imaging from [facility]. If it truly appeared this quickly over 6 weeks is likely a very aggressive malignancy Small left-sided pneumothorax status post left lung biopsy, not significantly changed from the recent chest x-ray. irregular partially cavitated soft tissue mass at the infrahilar region on the left, suspicious for primary bronchogenic malignancy. CC recent biopsy results. Mediastinal and left hilar lymphadenopathy, nonspecific but unchanged. Mild aneurysmal dilation of the ascending thoracic aorta. Emphysema. Blood tinged sputum - likely bronchitis from coughing. No need to hold lovenox Leukocytosis - sepsis from pneumonia, given IVF and antibiotics prior to transport to [facility], could also be 2/2 steroid administration H/o PE - will cover with lovenox Elevated blood pressure without dx of HTN - previously prescribed lisinopril and hydralazine, but currently does not take anti-hypertensives Smoker - counseled on cessation. He is not interested in nicotine patch Abnormal CT of the chest, reportedly he has a left lung mass with mediastinal lymphadenopathy. Chronic obstructive pulmonary disease with mild acute exacerbation. Acute bronchitis versus pneumonia. d/w pathology. bx c/w organizing pneumonia discussion with him regarding the smoking cessation. I have advised him to stop smoking FEN - General diet PPX - lovenox FULL CODE Dispo - inpatient for pneumonia failing outpatient therapy and new lung mass, likely 2 midnights. [facility] SWISH AND SWALLOW QID ONCOLOGY CONSULT REVIEWED 32 min pt exam, chart review D./C PLANNING TIMWE, > 50% of time spent with exam, chart review, pt care coordination History of Present Illness History of Present Illness History of Present Illness History of Present Illness Mr Laureano is a 59 year old male with PMHx smoker, bronchitis who presents via private vehicle to [place] ED with blood-tinged sputum. Patient was seen at [facility] ED on 01/31/2020 for fever, aches, productive sputum and was placed on doxycycline, inhalers, steroids. He comes in today stating that he now has bloody sputum which is why he came back. He does have some mild shortness of breath. He has been taking his medications as prescribed. He denies any pain. He does not currently have fevers. He had a negative coronavirus test on 01/31/2020. He does not have neo hemoptysis and in fact did cough up thick yellow sputum however it was not blood-tinged. CTPA was ordered which shows a concerning mass with lymphadenopathy, but negative for PE. Labs with WBC 20.9, Hb 14.5, platelets 322, D dimer 1.94. Troponin 0, albumin 3.3. Na 140, K 3.5, BUN 22, Cr 0.9, Glucose 119 He does relate to me he has some pain in his left side, but it has resolved. Still a bit short of breath. He notes he does have history of pulmonary embolism that was small 5 years ago and another one 30 years ago but has since been off anticoagulation. He also notes that he had a CT lung cancer screening [facility] weeks ago [facility] and was told it was "fine". He is concerned as he has a strong family history of cancer with colon cancer in brother, lung cancer in father and various other cancers as well in the family. He is up to date on his colonoscopy, which he had recently. Due to pneumonia not responsive to outpatient treatment and need for pulmonology and IR consultation for biopsy was transferred to [place]. Past Medical History Cardiovascular: No pertinent hx, HTN Pulmonary: No pertinent hx, COPD Musculoskeletal: low back pain Past Surgical History Past Surgical History: Other, No pertinent history Family History Family History: Cancer (Breast, colon, lung), Diabetes, Heart Disease Social History Smoke: 1 pack per day ALCOHOL: none Drugs: None Vitals Vitals Vital Signs Date Time Temp Pulse Resp B/P (MAP) Pulse Ox O2 Delivery O2 Flow Rate FiO2 02/06/20 07:54 96 Room Air 02/06/20 07:28 98.1 78 18 111/81 (91) 98.1 Physical Exam General: Alert, Oriented X3, Cooperative, No acute distress Heart: Regular rate, Normal S1, Normal S2, No murmurs Lungs: Clear, Other (dminished bs) Abdomen: Normal bowel sounds, Soft Extremities: No clubbing, No cyanosis Skin: No rashes Labs LABS Laboratory Tests Test 02/05/20 12:00 White Blood Count 9.7 x10^3/uL (4.0-11.0) Red Blood Count 5.18 x10^6/uL (4.30-5.70) Hemoglobin 15.2 g/dL (13.0-17.5) Hematocrit 44.6 % (39.0-53.0) Mean Corpuscular Volume 86 fL (79-100) Mean Corpuscular Hemoglobin 29 pg (25-35) Mean Corpuscular Hemoglobin Concent 34 g/dL (31-37) Red Cell Distribution Width 13.6 % (11.5-14.5) Platelet Count 295 x10^3/uL (140-400) Neutrophils (%) (Auto) 70 % (31-73) Lymphocytes (%) (Auto) 20 % (24-48) Monocytes (%) (Auto) 8 % (0-9) Eosinophils (%) (Auto) 2 % (0-3) Basophils (%) (Auto) 0 % (0-3) Neutrophils # (Auto) 6.8 x10^3/uL (1.8-7.7) Lymphocytes # (Auto) 1.9 x10^3/uL (1.0-4.8) Monocytes # (Auto) 0.8 x10^3/uL (0.0-1.1) Eosinophils # (Auto) 0.2 x10^3/uL (0.0-0.7) Basophils # (Auto) 0.0 x10^3/uL (0.0-0.2) Sodium Level 140 mmol/L (136-145) Potassium Level 4.4 mmol/L (3.5-5.1) Chloride Level 103 mmol/L (98-107) Carbon Dioxide Level 32 mmol/L (21-32) Anion Gap 5 (6-14) Blood Urea Nitrogen 13 mg/dL (8-26) Creatinine 0.8 mg/dL (0.7-1.3) Estimated GFR (Cockcroft-Gault) 98.9 BUN/Creatinine Ratio 16 (6-20) Glucose Level 116 mg/dL (70-99) Calcium Level 8.9 mg/dL (8.5-10.1) Total Bilirubin 0.3 mg/dL (0.2-1.0) Aspartate Amino Transf (AST/SGOT) 17 U/L (15-37) Alanine Aminotransferase (ALT/SGPT) 47 U/L (16-63) Alkaline Phosphatase 109 U/L (46-116) Total Protein 7.5 g/dL (6.4-8.2) Albumin 3.4 g/dL (3.4-5.0) Albumin/Globulin Ratio 0.8 (1.0-1.7) Comment Review of Relevant I have reviewed the following items mayito (where applicable) has been applied. Labs Laboratory Tests Test 02/05/20 12:00 White Blood Count 9.7 x10^3/uL (4.0-11.0) Red Blood Count 5.18 x10^6/uL (4.30-5.70) Hemoglobin 15.2 g/dL (13.0-17.5) Hematocrit 44.6 % (39.0-53.0) Mean Corpuscular Volume 86 fL (79-100) Mean Corpuscular Hemoglobin 29 pg (25-35) Mean Corpuscular Hemoglobin Concent 34 g/dL (31-37) Red Cell Distribution Width 13.6 % (11.5-14.5) Platelet Count 295 x10^3/uL (140-400) Neutrophils (%) (Auto) 70 % (31-73) Lymphocytes (%) (Auto) 20 % (24-48) Monocytes (%) (Auto) 8 % (0-9) Eosinophils (%) (Auto) 2 % (0-3) Basophils (%) (Auto) 0 % (0-3) Neutrophils # (Auto) 6.8 x10^3/uL (1.8-7.7) Lymphocytes # (Auto) 1.9 x10^3/uL (1.0-4.8) Monocytes # (Auto) 0.8 x10^3/uL (0.0-1.1) Eosinophils # (Auto) 0.2 x10^3/uL (0.0-0.7) Basophils # (Auto) 0.0 x10^3/uL (0.0-0.2) Sodium Level 140 mmol/L (136-145) Potassium Level 4.4 mmol/L (3.5-5.1) Chloride Level 103 mmol/L (98-107) Carbon Dioxide Level 32 mmol/L (21-32) Anion Gap 5 (6-14) Blood Urea Nitrogen 13 mg/dL (8-26) Creatinine 0.8 mg/dL (0.7-1.3) Estimated GFR (Cockcroft-Gault) 98.9 BUN/Creatinine Ratio 16 (6-20) Glucose Level 116 mg/dL (70-99) Calcium Level 8.9 mg/dL (8.5-10.1) Total Bilirubin 0.3 mg/dL (0.2-1.0) Aspartate Amino Transf (AST/SGOT) 17 U/L (15-37) Alanine Aminotransferase (ALT/SGPT) 47 U/L (16-63) Alkaline Phosphatase 109 U/L (46-116) Total Protein 7.5 g/dL (6.4-8.2) Albumin 3.4 g/dL (3.4-5.0) Albumin/Globulin Ratio 0.8 (1.0-1.7) Laboratory Tests Test 02/05/20 12:00 White Blood Count 9.7 x10^3/uL (4.0-11.0) Red Blood Count 5.18 x10^6/uL (4.30-5.70) Hemoglobin 15.2 g/dL (13.0-17.5) Hematocrit 44.6 % (39.0-53.0) Mean Corpuscular Volume 86 fL (79-100) Mean Corpuscular Hemoglobin 29 pg (25-35) Mean Corpuscular Hemoglobin Concent 34 g/dL (31-37) Red Cell Distribution Width 13.6 % (11.5-14.5) Platelet Count 295 x10^3/uL (140-400) Neutrophils (%) (Auto) 70 % (31-73) Lymphocytes (%) (Auto) 20 % (24-48) Monocytes (%) (Auto) 8 % (0-9) Eosinophils (%) (Auto) 2 % (0-3) Basophils (%) (Auto) 0 % (0-3) Neutrophils # (Auto) 6.8 x10^3/uL (1.8-7.7) Lymphocytes # (Auto) 1.9 x10^3/uL (1.0-4.8) Monocytes # (Auto) 0.8 x10^3/uL (0.0-1.1) Eosinophils # (Auto) 0.2 x10^3/uL (0.0-0.7) Basophils # (Auto) 0.0 x10^3/uL (0.0-0.2) Sodium Level 140 mmol/L (136-145) Potassium Level 4.4 mmol/L (3.5-5.1) Chloride Level 103 mmol/L (98-107) Carbon Dioxide Level 32 mmol/L (21-32) Anion Gap 5 (6-14) Blood Urea Nitrogen 13 mg/dL (8-26) Creatinine 0.8 mg/dL (0.7-1.3) Estimated GFR (Cockcroft-Gault) 98.9 BUN/Creatinine Ratio 16 (6-20) Glucose Level 116 mg/dL (70-99) Calcium Level 8.9 mg/dL (8.5-10.1) Total Bilirubin 0.3 mg/dL (0.2-1.0) Aspartate Amino Transf (AST/SGOT) 17 U/L (15-37) Alanine Aminotransferase (ALT/SGPT) 47 U/L (16-63) Alkaline Phosphatase 109 U/L (46-116) Total Protein 7.5 g/dL (6.4-8.2) Albumin 3.4 g/dL (3.4-5.0) Albumin/Globulin Ratio 0.8 (1.0-1.7) Medications Current Medications Ondansetron HCl (Zofran) 4 mg PRN Q4HRS PRN IV NAUSEA/VOMITING; Start 02/02/20 at 14:00 Zolpidem Tartrate (Ambien) 5 mg PRN QHS PRN PO INSOMNIA Last administered on 02/04/20at 21:29; Start 02/02/20 at 14:00 Acetaminophen (Tylenol) 650 mg PRN Q4HRS PRN PO TEMP OVER 100.4F OR MILD PAIN; Start 02/02/20 at 14:00 Docusate Sodium (Colace) 100 mg PRN BID PRN PO HARD STOOLS Last administered on 02/05/20at 09:17; Start 02/02/20 at 14:00 Guaifenesin (Robitussin) 200 mg PRN Q4HRS PRN PO COUGH, 1st CHOICE Last administered on 02/05/20at 09:20; Start 02/02/20 at 14:00 Enoxaparin Sodium (Lovenox 40mg Syringe) 40 mg Q24H SQ Last administered on 02/05/20 16:11; Start 02/02/20 at 15:00 Ceftriaxone Sodium (Rocephin) 1 gm Q24H IVP Last administered on 02/04/20 14:15; Start 02/02/20 at 15:00 Doxycycline Hyclate 100 mg/ Dextrose 100 ml @ 50 mls/hr Q12HR IV Last administered on 02/03/20 21:15; Start 02/02/20 at 21:00 Guaifenesin (Robitussin Dm) 10 ml PRN Q6HRS PRN PO COUGH, 2nd CHOICE Last administered on 02/04/20 21:28; Start 02/02/20 at 14:45 Budesonide (Pulmicort) 0.5 mg RTBID NEB Last administered on 02/06/20 07:51; Start 02/02/20 at 20:00 Albuterol/ Ipratropium (Duoneb) 3 ml RTQID NEB Last administered on 02/06/20 07:51; Start 02/02/20 at 16:00 Psyllium Hydrophilic Mucilloid (Metamucil Fiber Packet) 1 pkt QPM PO Last administered on 02/05/20 18:30; Start 02/02/20 at 18:00 Magnesium Citrate (Citroma) 296 ml PRN DAILY PRN PO CONSTIPATION; Start 02/02/20 at 14:45 Tramadol HCl (Ultram) 50 mg PRN Q6HRS PRN PO PAIN; Start 02/02/20 at 14:45 Lidocaine HCl (Buffered Lidocaine 1%) 3 ml STK-MED ONCE .ROUTE ; Start 02/02/20 at 15:07; Stop 02/02/20 at 15:07; Status DC Midazolam HCl (Versed) 2 mg STK-MED ONCE .ROUTE ; Start 02/02/20 at 15:07; Stop 02/02/20 at 15:07; Status DC Fentanyl Citrate (Fentanyl 2ml Vial) 100 mcg STK-MED ONCE .ROUTE ; Start 02/02/20 at 15:07; Stop 02/02/20 at 15:08; Status DC Lidocaine HCl (Buffered Lidocaine 1%) 6 ml 1X ONCE IJ Last administered on 02/01at 15:46; Start 02/02/20 at 15:45; Stop 02/02/20 at 15:46; Status DC Midazolam HCl (Versed) 1 mg 1X ONCE IV Last administered on 02/02/20at 15:47; Start 02/02/20 at 15:45; Stop 02/02/20 at 15:46; Status DC Fentanyl Citrate (Fentanyl 2ml Vial) 50 mcg 1X ONCE IV Last administered on 02/02/20at 15:46; Start 02/02/20 at 15:45; Stop 02/02/20 at 15:46; Status DC Lactobacillus Rhamnosus (Culturelle) 1 cap BID PO Last administered on 02/06/20at 09:25; Start 02/03/20 at 21:00 Nystatin (Nystatin Oral Susp) 5 ml [id number] Last administered on 02/06/20at 09:25; Start 02/05/20 at 13:00 Active Scripts Active Reported Bevespi Aerosphere Inhaler (Glycopyrrolate/Formoterol Fum) 10.7 Gm Hfa.aer.ad 10.7 Gm IH BID Vitals/I & O Vital Sign - Last 24 Hours 02/05/20 02/05/20 02/05/20 02/05/20 11:00 11:06 15:00 15:58 Temp 97.7 97.9 97.7 97.9 Pulse 78 76 Resp 18 18 B/P (MAP) 98/71 (80) 115/82 (93) Pulse Ox 95 96 O2 Delivery Room Air Room Air Room Air Room Air 02/05/20 02/05/20 02/05/20 02/05/20 19:00 20:00 20:30 20:32 Temp 98.6 98.6 Pulse 78 Resp 18 B/P (MAP) 119/80 (93) Pulse Ox 96 96 96 O2 Delivery Room Air Room Air Room Air Room Air 02/05/20 02/06/20 02/06/20 02/06/20 23:00 03:00 07:28 07:53 Temp 98.3 98.0 98.1 98.3 98.0 98.1 Pulse 71 82 78 Resp 18 18 18 B/P (MAP) 123/70 (87) 114/78 (90) 111/81 (91) Pulse Ox 95 93 96 96 O2 Delivery Room Air Room Air Room Air Room Air 02/06/20 07:54 Pulse Ox 96 O2 Delivery Room Air Intake and Output 02/05/20 02/05/20 02/06/20 15:00 23:00 07:00 Intake Total 50 ml Balance 50 ml Justicifation of Admission Dx: Justifications for Admission: Justification of Admission Dx: Yes Acute COPD Exacerbation: Acute COPD Exacerbation HERON CRANDALL MD Feb 06, 2020 10:30
[2020-02-06 11:00] VITALS: BP 123/66
--- NOTE | 2020-02-06 11:16 | PDOC ---
PULMONARY PROGRESS NOTES DATE: 02/06/20 TIME: 11:13 Subjective sob better, has cough, no hemoptysis Vitals Vital Signs Date Time Temp Pulse Resp B/P (MAP) Pulse Ox O2 Delivery O2 Flow Rate FiO2 02/06/20 07:54 96 Room Air 02/06/20 07:28 98.1 78 18 111/81 (91) 98.1 ROS: No Nausea, No Chest Pain General: Alert, Oriented X4 HEENT: Other (nc at perrl) Lungs: Clear Cardiovascular: S1, S2 Abdomen: Soft, Non-tender Neuro Exam: Alert Extremities: No Edema Skin: Warm Labs Laboratory Tests Test 02/05/20 12:00 White Blood Count 9.7 x10^3/uL (4.0-11.0) Red Blood Count 5.18 x10^6/uL (4.30-5.70) Hemoglobin 15.2 g/dL (13.0-17.5) Hematocrit 44.6 % (39.0-53.0) Mean Corpuscular Volume 86 fL (79-100) Mean Corpuscular Hemoglobin 29 pg (25-35) Mean Corpuscular Hemoglobin Concent 34 g/dL (31-37) Red Cell Distribution Width 13.6 % (11.5-14.5) Platelet Count 295 x10^3/uL (140-400) Neutrophils (%) (Auto) 70 % (31-73) Lymphocytes (%) (Auto) 20 % (24-48) Monocytes (%) (Auto) 8 % (0-9) Eosinophils (%) (Auto) 2 % (0-3) Basophils (%) (Auto) 0 % (0-3) Neutrophils # (Auto) 6.8 x10^3/uL (1.8-7.7) Lymphocytes # (Auto) 1.9 x10^3/uL (1.0-4.8) Monocytes # (Auto) 0.8 x10^3/uL (0.0-1.1) Eosinophils # (Auto) 0.2 x10^3/uL (0.0-0.7) Basophils # (Auto) 0.0 x10^3/uL (0.0-0.2) Sodium Level 140 mmol/L (136-145) Potassium Level 4.4 mmol/L (3.5-5.1) Chloride Level 103 mmol/L (98-107) Carbon Dioxide Level 32 mmol/L (21-32) Anion Gap 5 (6-14) Blood Urea Nitrogen 13 mg/dL (8-26) Creatinine 0.8 mg/dL (0.7-1.3) Estimated GFR (Cockcroft-Gault) 98.9 BUN/Creatinine Ratio 16 (6-20) Glucose Level 116 mg/dL (70-99) Calcium Level 8.9 mg/dL (8.5-10.1) Total Bilirubin 0.3 mg/dL (0.2-1.0) Aspartate Amino Transf (AST/SGOT) 17 U/L (15-37) Alanine Aminotransferase (ALT/SGPT) 47 U/L (16-63) Alkaline Phosphatase 109 U/L (46-116) Total Protein 7.5 g/dL (6.4-8.2) Albumin 3.4 g/dL (3.4-5.0) Albumin/Globulin Ratio 0.8 (1.0-1.7) Laboratory Tests Test 02/05/20 12:00 White Blood Count 9.7 x10^3/uL (4.0-11.0) Red Blood Count 5.18 x10^6/uL (4.30-5.70) Hemoglobin 15.2 g/dL (13.0-17.5) Hematocrit 44.6 % (39.0-53.0) Mean Corpuscular Volume 86 fL (79-100) Mean Corpuscular Hemoglobin 29 pg (25-35) Mean Corpuscular Hemoglobin Concent 34 g/dL (31-37) Red Cell Distribution Width 13.6 % (11.5-14.5) Platelet Count 295 x10^3/uL (140-400) Neutrophils (%) (Auto) 70 % (31-73) Lymphocytes (%) (Auto) 20 % (24-48) Monocytes (%) (Auto) 8 % (0-9) Eosinophils (%) (Auto) 2 % (0-3) Basophils (%) (Auto) 0 % (0-3) Neutrophils # (Auto) 6.8 x10^3/uL (1.8-7.7) Lymphocytes # (Auto) 1.9 x10^3/uL (1.0-4.8) Monocytes # (Auto) 0.8 x10^3/uL (0.0-1.1) Eosinophils # (Auto) 0.2 x10^3/uL (0.0-0.7) Basophils # (Auto) 0.0 x10^3/uL (0.0-0.2) Sodium Level 140 mmol/L (136-145) Potassium Level 4.4 mmol/L (3.5-5.1) Chloride Level 103 mmol/L (98-107) Carbon Dioxide Level 32 mmol/L (21-32) Anion Gap 5 (6-14) Blood Urea Nitrogen 13 mg/dL (8-26) Creatinine 0.8 mg/dL (0.7-1.3) Estimated GFR (Cockcroft-Gault) 98.9 BUN/Creatinine Ratio 16 (6-20) Glucose Level 116 mg/dL (70-99) Calcium Level 8.9 mg/dL (8.5-10.1) Total Bilirubin 0.3 mg/dL (0.2-1.0) Aspartate Amino Transf (AST/SGOT) 17 U/L (15-37) Alanine Aminotransferase (ALT/SGPT) 47 U/L (16-63) Alkaline Phosphatase 109 U/L (46-116) Total Protein 7.5 g/dL (6.4-8.2) Albumin 3.4 g/dL (3.4-5.0) Albumin/Globulin Ratio 0.8 (1.0-1.7) Medications Active Scripts Medications Dose Route/Sig Max Daily Dose Days Date Category Bevespi Aerosphere Inhaler (Glycopyrrolate/Formoterol Fum) 10.7 Gm Hfa.aer.ad 10.7 Gm IH BID 10/25/17 Reported Impression . IMPRESSION: 1. Cavitary pneumonia. early lung abscess 2. Abnormal CT of the chest, with a cavitary left lung mass with mediastinal lymphadenopathy. tny PTX. ct chest done outside 6 weeks ago was negative. possible lung abscess 3. Chronic obstructive pulmonary disease with mild acute exacerbation. 4. Acute bronchitis versus pneumonia. 5. Tobacco habituation. 6. Hypertension. Plan . PLAN AND RECOMMENDATIONS: 1. on RA 2. Continue bronchodilator. 3. Continue inhaled corticosteroid. 4. Continue antibiotic. 5. d/w pathology. bx c/w organizing pneumonia 6. I had a long discussion with him regarding the smoking cessation. I have advised him to stop smoking forever. 7. Lovenox for DVT prophylaxis. 8. dc home today. f/u ct chest in [place] and I have given appointment on apr 04 with me will dc home on PO levaquin bernardino w pt, rn IVETH LISA MD Feb 06, 2020 11:16
--- NOTE | 2020-02-06 12:32 | NUR ---
SW following. Reviewed chart and discussed with RN. Pt from home, room air, regular diet. No PT/OT needs. Pt to discharge today on oral medications. No further SW needs at this time.
--- NOTE | 2020-02-06 13:53 | PDOC3 ---
Discharge Summary Date of Admission: Feb 02, 2020 Date of Discharge: Feb 06, 2020 Follow-Up: Other (1-2 WEEKS) Admitting Diagnosis comment: DISCHARGE DX Assessment/Plan A/P: Pneumonia - left lower lobe, likely gram negative or gram positive given post- obstructive location, will cover with rocephin and doxycycline Lung mass - I have consented patient for IR lung biopsy and ordered his imaging from diagnostic imaging center. If it truly appeared this quickly over 6 weeks is likely a very aggressive malignancy Small left-sided pneumothorax status post left lung biopsy, not significantly changed from the recent chest x-ray. irregular partially cavitated soft tissue mass at the infrahilar region on the left, suspicious for primary bronchogenic malignancy. CC recent biopsy results. Mediastinal and left hilar lymphadenopathy, nonspecific but unchanged. Mild aneurysmal dilation of the ascending thoracic aorta. Emphysema. Blood tinged sputum - likely bronchitis from coughing. No need to hold lovenox Leukocytosis - sepsis from pneumonia, given IVF and antibiotics prior to transport to [facility], could also be 2/2 steroid administration H/o PE - will cover with lovenox Elevated blood pressure without dx of HTN - previously prescribed lisinopril and hydralazine, but currently does not take anti-hypertensives Smoker - counseled on cessation. He is not interested in nicotine patch Abnormal CT of the chest, reportedly he has a left lung mass with mediastinal lymphadenopathy. Chronic obstructive pulmonary disease with mild acute exacerbation. Acute bronchitis versus pneumonia. d/w pathology. bx c/w organizing pneumonia discussion with him regarding the smoking cessation. I have advised him to stop smoking FEN - General diet PPX - lovenox FULL CODE Dispo - inpatient for pneumonia failing outpatient therapy and new lung mass, likely 2 midnights. [facility] SWISH AND SWALLOW QID ONCOLOGY CONSULT REVIEWED 32 min pt exam, chart review D./C PLANNING TIMWE, > 50% of time spent with exam, chart review, pt care coordination History of Present Illness History of Present Illness History of Present Illness History of Present Illness Mr Laureano is a 59 year old male with PMHx smoker, bronchitis who presents via private vehicle to [place] ED with blood-tinged sputum. Patient was seen at [facility] ED on 01/31/2020 for fever, aches, productive sputum and was placed on doxycycline, inhalers, steroids. He comes in today stating that he now has bloody sputum which is why he came back. He does have some mild shortness of breath. He has been taking his medications as prescribed. He denies any pain. He does not currently have fevers. He had a negative coronavirus test on 01/31/2020. He does not have neo hemoptysis and in fact did cough up thick yellow sputum however it was not blood-tinged. CTPA was ordered which shows a concerning mass with lymphadenopathy, but negative for PE. Labs with WBC 20.9, Hb 14.5, platelets 322, D dimer 1.94. Troponin 0, albumin 3.3. Na 140, K 3.5, BUN 22, Cr 0.9, Glucose 119 He does relate to me he has some pain in his left side, but it has resolved. Still a bit short of breath. He notes he does have history of pulmonary embolism that was small 5 years ago and another one 30 years ago but has since been off anticoagulation. He also notes that he had a CT lung cancer screening 6 weeks ago at diagnostic imaging centers and was told it was "fine". He is concerned as he has a strong family history of cancer with colon cancer in brother, lung cancer in father and various other cancers as well in the family. He is up to date on his colonosc opy, which he had recently. Due to pneumonia not responsive to outpatient treatment and need for pulmonology and IR consultation for biopsy was transferred to [place]. Past Medical History Cardiovascular: No pertinent hx, HTN Pulmonary: No pertinent hx, COPD Musculoskeletal: low back pain Past Surgical History Past Surgical History: Other, No pertinent history Family History Family History: Cancer (Breast, colon, lung), Diabetes, Heart Disease Social History Smoke: 1 pack per day ALCOHOL: none Drugs: None Vitals Vitals Vital Signs Date Time Temp Pulse Resp B/P (MAP) Pulse Ox O2 Delivery O2 Flow Rate FiO2 02/06/20 07:54 96 Room Air 02/06/20 07:28 98.1 78 18 111/81 (91) 98.1 Physical Exam General: Alert, Oriented X3, Cooperative, No acute distress Heart: Regular rate, Normal S1, Normal S2, No murmurs Lungs: Clear, Other (dminished bs) Abdomen: Normal bowel sounds, Soft Extremities: No clubbing, No cyanosis Skin: No rashes FINAL DIAGNOSIS History of Present Illness History of Present Illness Mr Laureano is a 59 year old male with PMHx smoker, bronchitis who presents via private vehicle to [place] ED with blood-tinged sputum. Patient was seen at [facility] ED on 01/31/2020 for fever, aches, productive sputum and was placed on doxycycline, inhalers, steroids. He comes in today stating that he now has bloody sputum which is why he came back. He does have some mild shortness of breath. He has been taking his medications as prescribed. He denies any pain. He does not currently have fevers. He had a negative coronavirus test on 01/31/2020. He does not have neo hemoptysis and in fact did cough up thick yellow sputum however it was not blood-tinged. CTPA was ordered which shows a concerning mass with lymphadenopathy, but negative for PE. Labs with WBC 20.9, Hb 14.5, platelets 322, D dimer 1.94. Troponin 0, albumin 3.3. Na 140, K 3.5, BUN 22, Cr 0.9, Glucose 119 He does relate to me he has some pain in his left side, but it has resolved. Still a bit short of breath. He notes he does have history of pulmonary embolism that was small 5 years ago and another one 30 years ago but has since been off anticoagulation. He also notes that he had a CT lung cancer screening 6 weeks ago at diagnostic imaging centers and was told it was "fine". He is concerned as he has a strong family history of cancer with colon cancer in brother, lung cancer in father and various other cancers as well in the family. He is up to date on his colonoscopy, which he had recently. Due to pneumonia not responsive to outpatient treatment and need for pulmonology and IR consultation for biopsy was transferred to [facility]. Past Medical History Cardiovascular: No pertinent hx, HTN Pulmonary: No pertinent hx, COPD Musculoskeletal: low back pain Past Surgical History Past Surgical History: Other, No pertinent history Family History Family History: Cancer (Breast, colon, lung), Diabetes, Heart Disease Social History Smoke: 1 pack per day ALCOHOL: none Drugs: None Brief Hospital Course Mr. Laureano is a 59 old [sex] who presented with [ ORGANIZING PNEUMONIA ] CONDITION AT DISCHARGE: Improved Discharge Medications Current Medications Ondansetron HCl (Zofran) 4 mg PRN Q4HRS PRN IV NAUSEA/VOMITING; Start 02/02/20 at 14:00 Zolpidem Tartrate (Ambien) 5 mg PRN QHS PRN PO INSOMNIA Last administered on 02/04/20 21:29; Start 02/02/20 at 14:00 Acetaminophen (Tylenol) 650 mg PRN Q4HRS PRN PO TEMP OVER 100.4F OR MILD PAIN; Start 02/02/20 at 14:00 Docusate Sodium (Colace) 100 mg PRN BID PRN PO HARD STOOLS Last administered on 02/05/20 09:17; Start 02/02/20 at 14:00 Guaifenesin (Robitussin) 200 mg PRN Q4HRS PRN PO COUGH, 1st CHOICE Last administered on 02/05/20 09:20; Start 02/02/20 at 14:00 Enoxaparin Sodium (Lovenox 40mg Syringe) 40 mg Q24H SQ Last administered on 02/05/20 16:11; Start 02/02/20 at 15:00 Ceftriaxone Sodium (Rocephin) 1 gm Q24H IVP Last administered on 02/04/20 14:15; Start 02/02/20 at 15:00 Doxycycline Hyclate 100 mg/ Dextrose 100 ml @ 50 mls/hr Q12HR IV Last administered on 02/03/20 21:15; Start 02/02/20 at 21:00 Guaifenesin (Robitussin Dm) 10 ml PRN Q6HRS PRN PO COUGH, 2nd CHOICE Last administered on 02/04/20 21:28; Start 02/02/20 at 14:45 Budesonide (Pulmicort) 0.5 mg RTBID NEB Last administered on 02/06/20 07:51; Start 02/02/20 at 20:00 Albuterol/ Ipratropium (Duoneb) 3 ml RTQID NEB Last administered on 02/06/20 07:51; Start 02/02/20 at 16:00 Psyllium Hydrophilic Mucilloid (Metamucil Fiber Packet) 1 pkt QPM PO Last administered on 02/05/20 18:30; Start 02/02/20 at 18:00 Magnesium Citrate (Citroma) 296 ml PRN DAILY PRN PO CONSTIPATION; Start 02/02/20 at 14:45 Tramadol HCl (Ultram) 50 mg PRN Q6HRS PRN PO MODERATE - SEVERE PAIN; Start 02/02/20 at 14:45 Lidocaine HCl (Buffered Lidocaine 1%) 3 ml STK-MED ONCE .ROUTE ; Start 02/02/20 at 15:07; Stop 02/02/20 at 15:07; Status DC Midazolam HCl (Versed) 2 mg STK-MED ONCE .ROUTE ; Start 02/02/20 at 15:07; Stop 02/02/20 at 15:07; Status DC Fentanyl Citrate (Fentanyl 2ml Vial) 100 mcg STK-MED ONCE .ROUTE ; Start 02/02/20 at 15:07; Stop 02/02/20 at 15:08; Status DC Lidocaine HCl (Buffered Lidocaine 1%) 6 ml 1X ONCE IJ Last administered on 02/02/20at 15:46; Start 02/02/20 at 15:45; Stop 02/02/20 at 15:46; Status DC Midazolam HCl (Versed) 1 mg 1X ONCE IV Last administered on 02/02/20at 15:47; Start 02/02/20 at 15:45; Stop 02/02/20 at 15:46; Status DC Fentanyl Citrate (Fentanyl 2ml Vial) 50 mcg 1X ONCE IV Last administered on 02/02/20at 15:46; Start 02/02/20 at 15:45; Stop 02/02/20 at 15:46; Status DC Lactobacillus Rhamnosus (Culturelle) 1 cap BID PO Last administered on 0at 09:25; Start 02/03/20 at 21:00 Nystatin (Nystatin Oral Susp) 5 ml [id number] Last administered on 02/06/20at 09:25; Start 02/05/20 at 13:00 Active Scripts Active Reported Bevespi Aerosphere Inhaler (Glycopyrrolate/Formoterol Fum) 10.7 Gm Hfa.aer.ad 10.7 Gm IH BID Vital Signs Vital Signs Date Time Temp Pulse Resp B/P (MAP) Pulse Ox O2 Delivery O2 Flow Rate FiO2 02/06/20 11:00 98.1 83 18 123/66 (85) 98 Room Air 98.1 Labs Laboratory Tests Test 02/05/20 12:00 White Blood Count 9.7 x10^3/uL (4.0-11.0) Red Blood Count 5.18 x10^6/uL (4.30-5.70) Hemoglobin 15.2 g/dL (13.0-17.5) Hematocrit 44.6 % (39.0-53.0) Mean Corpuscular Volume 86 fL (79-100) Mean Corpuscular Hemoglobin 29 pg (25-35) Mean Corpuscular Hemoglobin Concent 34 g/dL (31-37) Red Cell Distribution Width 13.6 % (11.5-14.5) Platelet Count 295 x10^3/uL (140-400) Neutrophils (%) (Auto) 70 % (31-73) Lymphocytes (%) (Auto) 20 % (24-48) Monocytes (%) (Auto) 8 % (0-9) Eosinophils (%) (Auto) 2 % (0-3) Basophils (%) (Auto) 0 % (0-3) Neutrophils # (Auto) 6.8 x10^3/uL (1.8-7.7) Lymphocytes # (Auto) 1.9 x10^3/uL (1.0-4.8) Monocytes # (Auto) 0.8 x10^3/uL (0.0-1.1) Eosinophils # (Auto) 0.2 x10^3/uL (0.0-0.7) Basophils # (Auto) 0.0 x10^3/uL (0.0-0.2) Sodium Level 140 mmol/L (136-145) Potassium Level 4.4 mmol/L (3.5-5.1) Chloride Level 103 mmol/L (98-107) Carbon Dioxide Level 32 mmol/L (21-32) Anion Gap 5 (6-14) Blood Urea Nitrogen 13 mg/dL (8-26) Creatinine 0.8 mg/dL (0.7-1.3) Estimated GFR (Cockcroft-Gault) 98.9 BUN/Creatinine Ratio 16 (6-20) Glucose Level 116 mg/dL (70-99) Calcium Level 8.9 mg/dL (8.5-10.1) Total Bilirubin 0.3 mg/dL (0.2-1.0) Aspartate Amino Transf (AST/SGOT) 17 U/L (15-37) Alanine Aminotransferase (ALT/SGPT) 47 U/L (16-63) Alkaline Phosphatase 109 U/L (46-116) Total Protein 7.5 g/dL (6.4-8.2) Albumin 3.4 g/dL (3.4-5.0) Albumin/Globulin Ratio 0.8 (1.0-1.7) Allergies Allergies Coded Allergies Type Severity Reaction Last Updated Verified Penicillins Allergy Intermediate 02/02/20 Yes doxycycline Allergy Intermediate BLISTERS ON LIPS & ROOF OF MOUTH 02/04/20 Yes Disposition/Orders: D/C to Home Justicifation of Admission Dx: Justifications for Admission: Justification of Admission Dx: Yes Acute COPD Exacerbation: Acute COPD Exacerbation HERON CRANDALL MD Feb 06, 2020 13:53
[2020-02-06] MEDS ORDERED: NYST100054 SWSW (13:57)
[2020-02-06] MEDS ORDERED: LEVO750T31 PO (13:57)
[2020-02-06] MEDS ORDERED: GUAI5SYR PO (13:57)
[2020-02-06] MEDS ORDERED: ACET325T9 PO (13:57)
[2020-02-06] MEDS ORDERED: LACT1CAP19 PO (13:57)
--- NOTE | 2020-02-06 13:58 | DISCH ---
DISCHARGE INSTRUCTIONS Condition on Discharge Condition on Discharge: Stable Activity After Discharge Activity Instructions for Disc: Activity as tolerated, Other, see below Bathing Instructions: Shower-keep dressing dry Driving Instructions after Dis: Do not drive today Weight Bearing Status after Di: Non weight bearing Diet after Discharge Diet after Discharge: Regular Wound Incision Care Wound/Incision Care: Ice to area for comfort, Keep wound/cast CDI, Keep wound elevated, Do not change dressing Checks after Discharge Checks after discharge: Check blood press - daily Contacting the DR. after DC Call your doctor for: Concerns you may have Follow-Up Follow up with: SEE PCP NEXT WEEK, PULM 2 WEEKS Treatment/Equipment after DC Comment: back EHRON CRANDALL MD Feb 06, 2020 13:58
--- NOTE | 2020-02-06 14:30 | NUR ---
DISCHARGE INSTRUCTIONS GIVEN, QUESTIONS AND CONCERNS ANSWERED, PATIENT VERBALIZED UNDERSTANDING OF DISCHARGE INFORMATION INCLUDING TAKING ALL MEDICATIONS INSTRUCED AND FOLLOWING UP WITH HIS PRIMARY PROVIDER AND DR. LISA INSTRUCTED., SALINE LOCK REMOVED PER COST REPORT CLERK, BANDAGE APPLIED, ALL PERSONAL BELONGINGS GATHERED BY THE PATIENT AND PLACED IN BAGS FOR DISCHARGE.
--- NOTE | 2020-02-06 15:05 | NUR ---
PATIENT AMBULATES OFF THE UNIT ALONGSIDE THIS PAIRER SUBSTANDARD, EMOTIONAL SUPPORT GIVEN, FOLLOW UP APPOINTMENTS ENCOURAGED.
--- NOTE | 2020-02-06 18:06 | PATHOLOGY ---
[facility] Accession Number: [id number] . 01 Material submitted: . lung - LEFT LUNG BX. Modifiers: left . 01 Clinical history: . Left lung mass; pneumonia . 02 Diagnosis: Lung tissue, left lung needle biopsies: - Patchy organizing pneumonia. (JPM:chavez; 02/06/2020) QMS 02/06/2020 1002 Local . 02 Comment: Sections of the left lung needle biopsy reveal segments of lung tissue. There are focal air speces containing fibrin, red blood cells and scattered inflammatory cells. There are areas of organization comprised of nodules of edematous fibroblastic tissue showing mild acute and chronic inflammation. The findings are supportive of the diagnosis of patchy organizing pneumonia. There is no evidence of malignancy. The results are discussed with Dr. Parnell at approximately 09:00 a.m. on 02/06/2020. (JPM:chavez;02/06/2020) . 02 Electronically signed: . Javid Whitman MD, Pathologist NPI- [id number] . 01 Gross description: . The specimen is received in formalin, labeled "Travis Laureano, left lung biopsy". Received are five needle cores of pale nash soft tissue ranging in length from 0.3 to 1.5 cm in length by 0.1 cm in diameter. The specimen is submitted entirely in cassette A1 through A3. (CAA; 02/05/2020) QAC/QAC 02/05/2020 1633 Local . 02 Pathologist provided ICD-10: J84.89 . 02 CPT . 226905 Specimen Comment: A courtesy copy of this report has been sent to [phone], [phone] Specimen Comment: [id number], Specimen Comment: Report sent to Dr.HIMMELDR LUU / DR BURK Performed at: 01 [facility] [address] [facility] [address], [place] [id number] MD Kwabena Thakkar MD Phone: [phone] Performed at: 02 [facility] [address] [place], [place] [id number] MD Javid Whitman MD Phone: [phone]
== END 2020-02-06 15:05 | disposition home or self-care (01) | DRG 871 ==
LOC: 5 NORTH 12:14
PROVIDERS: ADMIT Internal Medicine; ATTEND Internal Medicine
PROC: 0BBL3ZX Excision of Left Lung, Percutaneous Approach, Diagnostic (ICD-10-PCS; principal; 2020-02-02)
DX: A41.50 Gram-negative sepsis, unspecified (principal); J85.1 Abscess of lung with pneumonia; J15.6 Pneumonia due to other Gram-negative bacteria; J93.9 Pneumothorax, unspecified; F17.210 Nicotine dependence, cigarettes, uncomplicated; I10 Essential (primary) hypertension; I71.2 Thoracic aortic aneurysm, without rupture; J43.9 Emphysema, unspecified; J84.89 Other specified interstitial pulmonary diseases; M40.209 Unspecified kyphosis, site unspecified; Z80.0 Family history of malignant neoplasm of digestive organs; Z80.1 Family history of malignant neoplasm of trachea, bronchus and lung; Z83.3 Family history of diabetes mellitus; Z85.118 Personal history of other malignant neoplasm of bronchus and lung; Z86.711 Personal history of pulmonary embolism; Z79.899 Other long term (current) drug therapy; Z71.6 Tobacco abuse counseling; T38.0X5A Adverse effect of glucocorticoids and synthetic analogues, initial encounter; Y92.89 Other specified places as the place of occurrence of the external cause
CPT/HCPCS: 32405; 36415; 71045; 71250; 77012; 80053; 85025; 85610; 88305; 94640; 94760; 99152; J0696; J1650; J2250; J3010; J3490; J7060; G0378; J7626